=== PATIENT | female | born 1940 | race African-American/Black ===

== ENCOUNTER 2019-05-30 13:04 | Inpatient (IN) | payer BC, MEDICARE ==
[~2019-05-30] VITALS: Ht 152.4 cm; Wt 47.2 kg
[2019-05-30] MEDS ORDERED: SODIUM CHLORIDE 0.9% 1000ML BAG (SEPSIS BOLUS) IV ONE (13:45)
[2019-05-30] MEDS ORDERED: PIPERACILLIN/TAZ 3.375G PREMIX 50 ML IV ONE (14:15)
[2019-05-30 14:23] LABS: BG BASE EXCESS 2.7 mmol/L (-2.0-2.0); BG CARBOXYHEMOGLOBIN 0.3 % (0.5-1.5); BG DEOXYHEMOGLOBIN 2.1 % (0.0-5.0); BG FRACTION INSPIRED OXYGEN 21; BG HCO3 ACT 25.8 mmol/L (22.0-26.0); BG METHEMOGLOBIN 0.2 % (0.0-1.5); BG OXYGEN SATURATION 97.9 % (92.0-98.5); BG OXYHEMOGLOBIN 97.4 % (94.0-97.0); BG PCO2 34.1 mmHg (35.0-45.0); BG PH 7.496 (7.350-7.450); BG PO2 102.3 mmHg (75.0-100.0); BG SAMPLE SITE RIGHT BRACHIAL; BG TOTAL HEMOGLOBIN 11.3 g/dL (12.0-18.0); BG VENT MODE ROOM AIR
[2019-05-30 16:36] LABS: HEMOGLOBIN. 11.4 g/dL (12.0-16.0); MEAN CORPUSCULAR HEMOGLOBIN 27.1 pg (28.0-32.0); MEAN CORPUSCULAR VOLUME 83.7 fL (81.0-99.0); MEAN PLATELET VOLUME 7.4 fl (7.4-10.4); PLATELET 376 x1000/uL (130-400); RED BLOOD CELL COUNT 4.19 mill/uL (4.2-5.4); RED CELL DISTRIBUTION WIDTH 16.6 % (11.6-14.6)
[2019-05-30 16:42] LABS: CHLORIDE 92 mEq/L (98-107)
[2019-05-30 16:43] LABS: PROTHROMBIN TIME 10.9 sec (9.6-11.0)
[2019-05-30 16:58] LABS: PLATELET ESTIMATE NORMAL
[2019-05-30] MEDS ORDERED: NOREPINEPHRINE 4 MG in DEXT 5% WATER 246 ML IV ONE (17:00)
[2019-05-30] MEDS ORDERED: KCL 20MEQ/100ML PREMIX 100 ML IV ONE (17:00)
[2019-05-30] MEDS ORDERED: NOREPINEPHRINE 4MG/250ML PMX 250 ML IV NR (17:30)
[2019-05-30] MEDS: VANCOMYCIN 1 G PREMIX 200 ML IV SCH (19:12)
[2019-05-30 19:20] LABS: CLARITY URINE CLEAR (CLEAR); COLOR URINE YELLOW (YELLOW); KETONES URINE NEGATIVE (NEGATIVE); LEUKOCYTE ESTERASE URINE NEGATIVE (NEGATIVE); NITRITE URINE NEGATIVE (NEGATIVE); OCCULT BLOOD URINE 3+ (NEGATIVE); PROTEIN URINE 1+ (NEGATIVE); SPECIFIC GRAVITY URINE 1.011 (1.005-1.030)
[2019-05-30] MEDS ORDERED: POTASSIUM CHLORIDE 20MEQ TABLET SR PO ONE (21:15)
[2019-05-30] MEDS ORDERED: BENZONATATE 200MG CAPSULE PO NR (21:15)
[2019-05-31] MEDS ORDERED: NOREPINEPHRINE 4MG/250ML PMX 250 ML IV PRN (03:00)
[2019-05-31 05:07] LABS: CHLORIDE 99 mEq/L (98-107)
[2019-05-31 05:19] LABS: HEMATOCRIT. 30.2 % (36.0-48.0); HEMOGLOBIN. 9.8 g/dL (12.0-16.0); MEAN CORPUSCULAR HEMOGLOBIN 27.2 pg (28.0-32.0); MEAN CORPUSCULAR VOLUME 83.6 fL (81.0-99.0); MEAN PLATELET VOLUME 7.3 fl (7.4-10.4); PLATELET 377 x1000/uL (130-400); RED BLOOD CELL COUNT 3.61 mill/uL (4.2-5.4); RED CELL DISTRIBUTION WIDTH 16.4 % (11.6-14.6)
[2019-05-31] MEDS ORDERED: POTASSIUM CHLORIDE 20MEQ TABLET SR PO NR ×2 (06:00→15:30)
[2019-05-31] MEDS ORDERED: PIPERACILLIN/TAZOBACTAM 3.375 G in DEXT 5% WATER 100 ML IV NR (06:00)
[2019-05-31] MEDS: ACETAMINOPHEN 325MG TABLET PO PRN ×3 (06:15→22:46)
[2019-05-31 07:29] LABS: PLATELET ESTIMATE NORMAL
[2019-05-31] MEDS: THIAMINE HCL 100MG TABLET PO SCH ×2 (10:25→17:02)
[2019-05-31] MEDS: ZINC SULFATE 220 MG ( 50 ) CAPSULE PO SCH (10:25)
[2019-05-31] MEDS ORDERED: PIPERACILLIN/TAZ 3.375G PREMIX 50 ML IV NR (12:00)
[2019-05-31] MEDS ORDERED: PIPERACILLIN/TAZOBACTAM 3.375 G in DEXT 5% WATER 100 ML IV SCH (12:00)
[2019-05-31] MEDS: ASCORBIC ACID 500 MG TABLET PO SCH (12:43)
[2019-05-31 15:25] LABS: PHOSPHORUS 1.7 mg/dL (2.5-4.9)
[2019-05-31] MEDS ORDERED: POTASSIUM CHLORIDE INJ 40 MEQ in DEXT 5% WATER 250 ML IV NR (15:50)
[2019-05-31] MEDS ORDERED: MEROPENEM 1,000 MG in SODIUM CHLORIDE 0.9% 100 ML IV SCH (15:50)
[2019-05-31] MEDS: VANCOMYCIN 1 G PREMIX 200 ML IV SCH (17:26)
[2019-05-31] MEDS: NOREPINEPHRINE 32 MG in DEXT 5% WATER 468 ML IV PRN ×2 (17:27→17:31)
[2019-05-31] MEDS: POTASSIUM CHLORIDE 20MEQ TABLET SR PO NR ×2 (17:49→17:50)
[2019-05-31] MEDS ORDERED: POTASSIUM PHOS,M-BASIC-D-BASIC 20 MMOL in DEXT 5% WATER 243.3333 ML IV ONE (18:15)
[2019-05-31] MEDS: VANCOMYCIN 500 MG PREMIX 100 ML IV SCH (19:48)
[2019-06-01 04:46] LABS: HEMATOCRIT. 32.9 % (36.0-48.0); HEMOGLOBIN. 10.4 g/dL (12.0-16.0); MEAN CORPUSCULAR HEMOGLOBIN 27.1 pg (28.0-32.0); MEAN CORPUSCULAR VOLUME 85.6 fL (81.0-99.0); PLATELET 306 x1000/uL (130-400); RED BLOOD CELL COUNT 3.84 mill/uL (4.2-5.4); RED CELL DISTRIBUTION WIDTH 16.6 % (11.6-14.6)
[2019-06-01 04:51] LABS: CHLORIDE 103 mEq/L (98-107)
[2019-06-01 05:43] LABS: PLATELET ESTIMATE NORMAL
[2019-06-01] MEDS: VANCOMYCIN 500 MG PREMIX 100 ML IV SCH ×3 (06:39→18:00)
[2019-06-01] MEDS ORDERED: MEROPENEM 1,000 MG in SODIUM CHLORIDE 0.9% 100 ML IV SCH ×3 (08:15→20:00)
[2019-06-01] MEDS ORDERED: MIDODRINE HCL 5MG TABLET PO NR ×2 (08:15→12:45)
[2019-06-01] MEDS: ASCORBIC ACID 500 MG TABLET PO SCH ×3 (08:48→21:00)
[2019-06-01] MEDS: ENOXAPARIN 30MG/0.3ML SYR SUBCUT SCH ×2 (09:00→09:13)
[2019-06-01] MEDS: MAGNESIUM 2 G PREMIX 50 ML IV SCH ×2 (09:12→09:53)
[2019-06-01] MEDS: THIAMINE HCL 100MG TABLET PO SCH ×2 (09:13→17:43)
[2019-06-01] MEDS: ZINC SULFATE 220 MG ( 50 ) CAPSULE PO SCH (09:13)
[2019-06-01] MEDS: SODIUM CHLORIDE 0.9% 1,000 ML IV SCH (10:15)
[2019-06-01] MEDS: TRAMADOL 50MG TABLET PO PRN ×2 (13:54→15:21)
[2019-06-01] MEDS ORDERED: SODIUM PHOS,M-BASIC-D-BASIC 20 MM in DEXT 5% WATER 243.3333 ML IV NR (14:15)
[2019-06-01] MEDS: NOREPINEPHRINE 32 MG in DEXT 5% WATER 468 ML IV PRN (15:21)
[2019-06-01] MEDS ORDERED: MIDODRINE HCL 5MG TABLET PO SCH (17:00)
[2019-06-01] MEDS: MIDODRINE HCL 5MG TABLET PO SCH (17:30)
[2019-06-01 23:27] VITALS: BP 98/63
[2019-06-01 23:36] VITALS: BP 98/63
[2019-06-01 23:42] VITALS: BP 98/63
[2019-06-02] VITALS (81 sets, daily range): BP systolic 83–103; BP diastolic 48–69
[2019-06-02] MEDS ORDERED: VANCOMYCIN 750 MG PREMIX 150 ML IV SCH
[2019-06-02] MEDS: VANCOMYCIN 500 MG PREMIX 100 ML IV SCH ×2 (06:27→17:51)
[2019-06-02 06:49] LABS: CHLORIDE 107 mEq/L (98-107)
[2019-06-02] MEDS: ASCORBIC ACID 500 MG TABLET PO SCH ×2 (08:09→21:00)
[2019-06-02] MEDS: MIDODRINE HCL 5MG TABLET PO SCH ×3 (08:09→17:27)
[2019-06-02] MEDS: ZINC SULFATE 220 MG ( 50 ) CAPSULE PO SCH (08:09)
[2019-06-02] MEDS: THIAMINE HCL 100MG TABLET PO SCH ×2 (08:09→17:27)
[2019-06-02] MEDS: MEROPENEM 500MG in NORMAL SALINE 50ML IV SCH ×2 (08:10→21:00)
[2019-06-02 10:28] LABS: HEMATOCRIT. 32.5 % (36.0-48.0); HEMOGLOBIN. 10.1 g/dL (12.0-16.0); MEAN CORPUSCULAR VOLUME 87.3 fL (81.0-99.0); MEAN PLATELET VOLUME 7.3 fl (7.4-10.4); PLATELET 284 x1000/uL (130-400); RED BLOOD CELL COUNT 3.73 mill/uL (4.2-5.4); RED CELL DISTRIBUTION WIDTH 17.3 % (11.6-14.6)
[2019-06-02 11:00] LABS: PLATELET ESTIMATE NORMAL
[2019-06-02 12:30] LABS: PHOSPHORUS 3.5 mg/dL (2.5-4.9)
[2019-06-02] MEDS: MORPHINE SULFATE 2 MG/ML CPJ (NOT FOR IM USE) IV PRN ×2 (12:50→19:57)
[2019-06-02] MEDS: LORAZEPAM 2MG/ML CPJ IV PRN (20:36)
[2019-06-03] VITALS (83 sets, daily range): BP systolic 77–109; BP diastolic 40–71
[2019-06-03] MEDS: BLOOD SUGAR DIAGNOSTIC STRIP TEST SCH ×4 (00:26→17:07)
[2019-06-03] MEDS: DEXTROSE 50% WATER 50ML SYRINGE IV PRN (00:38)
[2019-06-03] MEDS ORDERED: ATOR-2 PO (02:30)
[2019-06-03] MEDS ORDERED: FURO40SO PO (02:32)
[2019-06-03] MEDS ORDERED: AMLO10TA80 PO (02:32)
[2019-06-03] MEDS ORDERED: OMEP20TA2 PO (02:34)
[2019-06-03] MEDS ORDERED: ASPI-1497 PO (02:34)
[2019-06-03] MEDS: LORAZEPAM 2MG/ML CPJ IV PRN (03:39)
[2019-06-03] MEDS: VANCOMYCIN 500 MG PREMIX 100 ML IV SCH (05:48)
[2019-06-03 06:07] LABS: HEMATOCRIT. 34.5 % (36.0-48.0); HEMOGLOBIN. 10.8 g/dL (12.0-16.0); MEAN CORPUSCULAR HEMOGLOBIN 27.5 pg (28.0-32.0); MEAN CORPUSCULAR VOLUME 87.8 fL (81.0-99.0); MEAN PLATELET VOLUME 7.4 fl (7.4-10.4); PLATELET 249 x1000/uL (130-400); RED BLOOD CELL COUNT 3.93 mill/uL (4.2-5.4); RED CELL DISTRIBUTION WIDTH 17.6 % (11.6-14.6)
[2019-06-03 06:36] LABS: CHLORIDE 111 mEq/L (98-107)
[2019-06-03 08:08] LABS: PLATELET ESTIMATE NORMAL
[2019-06-03] MEDS: THIAMINE HCL 100MG TABLET PO SCH ×2 (08:36→17:07)
[2019-06-03] MEDS: ASCORBIC ACID 500 MG TABLET PO SCH ×2 (08:36→21:44)
[2019-06-03] MEDS: MIDODRINE HCL 5MG TABLET PO SCH ×3 (08:36→17:07)
[2019-06-03] MEDS: ZINC SULFATE 220 MG ( 50 ) CAPSULE PO SCH (08:36)
[2019-06-03] MEDS: MEROPENEM 500MG in NORMAL SALINE 50ML IV SCH ×2 (11:14→21:45)
[2019-06-03] MEDS ORDERED: PHENYLEPHRINE 10 MG in DEXT 5% WATER 249 ML IV PRN (13:00)
[2019-06-03] MEDS: PHENYLEPHRINE 40 MG in DEXT 5% WATER 246 ML IV PRN ×2 (18:13→23:04)
[2019-06-03] MEDS: SODIUM CHLORIDE 0.9% 1,000 ML IV SCH (21:45)
[2019-06-04] VITALS (94 sets, daily range): BP systolic 68–104; BP diastolic 32–67
[2019-06-04] MEDS: BLOOD SUGAR DIAGNOSTIC STRIP TEST SCH ×4 (00:58→18:00)
[2019-06-04] MEDS: PHENYLEPHRINE 40 MG in DEXT 5% WATER 246 ML IV PRN (03:46)
[2019-06-04 06:00] LABS: HEMATOCRIT. 31.8 % (36.0-48.0); HEMOGLOBIN. 10.1 g/dL (12.0-16.0); MEAN CORPUSCULAR HEMOGLOBIN 27.2 pg (28.0-32.0); MEAN CORPUSCULAR VOLUME 85.8 fL (81.0-99.0); PLATELET 235 x1000/uL (130-400); RED CELL DISTRIBUTION WIDTH 17.2 % (11.6-14.6)
[2019-06-04] MEDS ORDERED: PHENYLEPHRINE 80 MG in DEXT 5% WATER 492 ML IV PRN (06:00)
[2019-06-04 06:22] LABS: CHLORIDE 107 mEq/L (98-107)
[2019-06-04 06:29] LABS: VANCOMYCIN TROUGH 22.8 ug/mL (5.0-10.0)
[2019-06-04] MEDS: TRAMADOL 50MG TABLET PO PRN ×4 (07:24→19:05)
[2019-06-04] MEDS ORDERED: POTASSIUM CHLORIDE INJ 40 MEQ in DEXT 5% WATER 250 ML IV NR (08:00)
[2019-06-04] MEDS: MIDODRINE HCL 5MG TABLET PO SCH ×3 (08:57→18:05)
[2019-06-04] MEDS: ZINC SULFATE 220 MG ( 50 ) CAPSULE PO SCH (08:58)
[2019-06-04] MEDS: THIAMINE HCL 100MG TABLET PO SCH ×2 (08:58→18:05)
[2019-06-04] MEDS: ASCORBIC ACID 500 MG TABLET PO SCH ×2 (08:59→21:39)
[2019-06-04] MEDS: MEROPENEM 500MG in NORMAL SALINE 50ML IV SCH ×2 (09:00→21:39)
[2019-06-04 10:39] LABS: PLATELET ESTIMATE NORMAL
[2019-06-04] MEDS ORDERED: POTASSIUM CHLORIDE 20MEQ TABLET SR PO NR ×2 (11:00→14:00)
[2019-06-04] MEDS: SODIUM CHLORIDE 0.9% 1,000 ML IV SCH (18:06)
[2019-06-04] MEDS: PHENYLEPHRINE 80 MG in DEXT 5% WATER 492 ML IV PRN ×2 (19:31→23:17)
[2019-06-04] MEDS ORDERED: DIGOXIN 500MCG/2ML AMP IV NR (20:30)
[2019-06-04] MEDS ORDERED: ALBUMIN HUMAN 25GM/500ML (5%) IV NR (21:00)
[2019-06-05] VITALS (71 sets, daily range): BP systolic 68–142; BP diastolic 37–112
[2019-06-05] MEDS: BLOOD SUGAR DIAGNOSTIC STRIP TEST SCH ×4 (00:01→17:26)
[2019-06-05 07:29] LABS: BASOPHILS % 0.4 % (0.0-2.0); EOSINOPHILS % 0.7 % (0.0-5.0); HEMATOCRIT. 23.5 % (36.0-48.0); HEMOGLOBIN. 7.5 g/dL (12.0-16.0); LYMPHOCYTES % 7.9 % (20.0-50.0); MEAN CORPUSCULAR HEMOGLOBIN 27.4 pg (28.0-32.0); MEAN CORPUSCULAR VOLUME 86.4 fL (81.0-99.0); MEAN PLATELET VOLUME 7.8 fl (7.4-10.4); MONOCYTES % 6.6 % (2.0-8.0); NEUTROPHILS % 84.4 % (40.0-76.0); PLATELET 155 x1000/uL (130-400); RED BLOOD CELL COUNT 2.72 mill/uL (4.2-5.4); RED CELL DISTRIBUTION WIDTH 17.1 % (11.6-14.6)
[2019-06-05 07:39] LABS: CHLORIDE 107 mEq/L (98-107)
[2019-06-05] MEDS: THIAMINE HCL 100MG TABLET PO SCH ×2 (08:41→16:56)
[2019-06-05] MEDS: MIDODRINE HCL 5MG TABLET PO SCH ×3 (08:42→16:57)
[2019-06-05] MEDS: ASCORBIC ACID 500 MG TABLET PO SCH ×2 (08:42→21:12)
[2019-06-05] MEDS: ZINC SULFATE 220 MG ( 50 ) CAPSULE PO SCH (08:42)
[2019-06-05 09:50] LABS: BG BASE EXCESS -8.7 mmol/L (-2.0-2.0); BG BILEVEL POS AIRWAY PRESSURE 15/5; BG CARBOXYHEMOGLOBIN 0.2 % (0.5-1.5); BG DEOXYHEMOGLOBIN 0.5 % (0.0-5.0); BG FRACTION INSPIRED OXYGEN 60; BG HCO3 ACT 15.5 mmol/L (22.0-26.0); BG METHEMOGLOBIN 0.3 % (0.0-1.5); BG OXYGEN SATURATION 99.5 % (92.0-98.5); BG PCO2 27.1 mmHg (35.0-45.0); BG PH 7.374 (7.350-7.450); BG PO2 187.5 mmHg (75.0-100.0); BG SAMPLE SITE RIGHT RADIAL; BG VENT MODE MASK - BIPAP; BG VENT RATE 16 set
[2019-06-05] MEDS ORDERED: POTASSIUM CHLORIDE 20MEQ TABLET SR PO SCH (10:00)
[2019-06-05] MEDS ORDERED: POTASSIUM CHLORIDE 20MEQ/PACKET NG SCH (10:15)
[2019-06-05] MEDS: MEROPENEM 500MG in NORMAL SALINE 50ML IV SCH ×2 (11:01→21:12)
[2019-06-05] MEDS: SODIUM CHLORIDE 0.9% 1,000 ML IV SCH (12:54)
[2019-06-05] MEDS: IPRATROPIUM BROMIDE (0.02%) 0.5MG/2.5ML NEB HHN SCH ×2 (14:58→20:04)
[2019-06-05] MEDS: FLUDROCORTISONE ACETATE 0.1MG TABLET PO SCH (16:57)
[2019-06-05] MEDS: VASOPRESSIN 10 UNIT in SODIUM CHLORIDE 0.9% 99.5 ML IV PRN (19:51)
[2019-06-05] MEDS: PHENYLEPHRINE 80 MG in DEXT 5% WATER 492 ML IV PRN (23:22)
[2019-06-06] VITALS (88 sets, daily range): BP systolic 75–108; BP diastolic 50–78
[2019-06-06] MEDS: BLOOD SUGAR DIAGNOSTIC STRIP TEST SCH ×4 (00:44→17:33)
[2019-06-06] MEDS: VASOPRESSIN 10 UNIT in SODIUM CHLORIDE 0.9% 99.5 ML IV PRN ×5 (01:32→21:45)
[2019-06-06] MEDS: IPRATROPIUM BROMIDE (0.02%) 0.5MG/2.5ML NEB HHN SCH ×4 (02:27→22:15)
[2019-06-06] MEDS: PHENYLEPHRINE 80 MG in DEXT 5% WATER 492 ML IV PRN ×3 (05:37→21:53)
[2019-06-06 06:37] LABS: BASOPHILS % 0.5 % (0.0-2.0); EOSINOPHILS % 0.4 % (0.0-5.0); HEMATOCRIT. 24.5 % (36.0-48.0); HEMOGLOBIN. 7.6 g/dL (12.0-16.0); LYMPHOCYTES % 8.8 % (20.0-50.0); MEAN CORPUSCULAR HEMOGLOBIN 27.2 pg (28.0-32.0); MEAN CORPUSCULAR VOLUME 87.3 fL (81.0-99.0); MEAN PLATELET VOLUME 7.9 fl (7.4-10.4); MONOCYTES % 6.7 % (2.0-8.0); NEUTROPHILS % 83.6 % (40.0-76.0); PLATELET 169 x1000/uL (130-400); RED CELL DISTRIBUTION WIDTH 17.4 % (11.6-14.6)
[2019-06-06 06:56] LABS: CHLORIDE 110 mEq/L (98-107)
[2019-06-06] MEDS: THIAMINE HCL 100MG TABLET PO SCH ×2 (09:02→17:38)
[2019-06-06] MEDS: ASCORBIC ACID 500 MG TABLET PO SCH ×2 (09:02→21:16)
[2019-06-06] MEDS: FLUDROCORTISONE ACETATE 0.1MG TABLET PO SCH (09:02)
[2019-06-06] MEDS: ZINC SULFATE 220 MG ( 50 ) CAPSULE PO SCH (09:02)
[2019-06-06] MEDS: MIDODRINE HCL 5MG TABLET PO SCH ×3 (09:03→17:39)
[2019-06-06] MEDS: MEROPENEM 500MG in NORMAL SALINE 50ML IV SCH ×2 (09:04→21:16)
[2019-06-06] MEDS ORDERED: POTASSIUM CHLORIDE 20MEQ/PACKET PO SCH (09:45)
[2019-06-06 11:30] LABS: PHOSPHORUS 0.9 mg/dL (2.5-4.9)
[2019-06-06] MEDS ORDERED: POTASSIUM CHLORIDE INJ 40 MEQ in DEXT 5% WATER 250 ML IV SCH (12:00)
[2019-06-06] MEDS: METOCLOPRAMIDE HCL 10MG/2ML VIAL IV SCH ×2 (12:08→17:38)
[2019-06-06] MEDS ORDERED: MAGNESIUM 4 G PREMIX 100 ML IV SCH (14:00)
[2019-06-06] MEDS ORDERED: POTASSIUM PHOS,M-BASIC-D-BASIC 30 MMOL in SODIUM CHLORIDE 0.9% 500 ML IV SCH (14:30)
[2019-06-06] MEDS ORDERED: POTASSIUM CHLORIDE INJ 40 MEQ in DEXT 5% WATER 250 ML IV NR (18:30)
[2019-06-06] MEDS: LORAZEPAM 2MG/ML CPJ IV PRN (20:28)
[2019-06-07] VITALS (89 sets, daily range): BP systolic 76–143; BP diastolic 34–102
[2019-06-07] MEDS: BLOOD SUGAR DIAGNOSTIC STRIP TEST SCH ×4 (00:17→17:19)
[2019-06-07] MEDS: METOCLOPRAMIDE HCL 10MG/2ML VIAL IV SCH ×4 (00:18→17:19)
[2019-06-07] MEDS: VASOPRESSIN 10 UNIT in SODIUM CHLORIDE 0.9% 99.5 ML IV PRN ×5 (01:55→19:43)
[2019-06-07] MEDS: IPRATROPIUM BROMIDE (0.02%) 0.5MG/2.5ML NEB HHN SCH ×4 (02:44→19:53)
[2019-06-07 05:57] LABS: HEMATOCRIT. 26.4 % (36.0-48.0); HEMOGLOBIN. 8.1 g/dL (12.0-16.0); MEAN CORPUSCULAR HEMOGLOBIN 27.9 pg (28.0-32.0); MEAN CORPUSCULAR VOLUME 90.8 fL (81.0-99.0); MEAN PLATELET VOLUME 8.7 fl (7.4-10.4); PLATELET 179 x1000/uL (130-400); RED CELL DISTRIBUTION WIDTH 18.1 % (11.6-14.6)
[2019-06-07 06:04] LABS: CHLORIDE 108 mEq/L (98-107)
[2019-06-07 06:09] LABS: PHOSPHORUS 3.3 mg/dL (2.5-4.9)
[2019-06-07] MEDS: SODIUM CHLORIDE 0.9% 1,000 ML IV SCH (06:15)
[2019-06-07] MEDS ORDERED: SODIUM BICARBONATE 8.4% 1 MEQ/ML 50ML SYR IV SCH (07:00)
[2019-06-07 07:50] LABS: BG BASE EXCESS -16.2 mmol/L (-2.0-2.0); BG BILEVEL POS AIRWAY PRESSURE ST=15/5; BG CARBOXYHEMOGLOBIN 0.3 % (0.5-1.5); BG DEOXYHEMOGLOBIN 12.8 % (0.0-5.0); BG FRACTION INSPIRED OXYGEN 60; BG HCO3 ACT 10.7 mmol/L (22.0-26.0); BG METHEMOGLOBIN 0.4 % (0.0-1.5); BG OXYGEN SATURATION 87.1 % (92.0-98.5); BG OXYHEMOGLOBIN 86.5 % (94.0-97.0); BG PCO2 28.8 mmHg (35.0-45.0); BG PH 7.187 (7.350-7.450); BG PO2 63.7 mmHg (75.0-100.0); BG SAMPLE SITE RIGHT RADIAL; BG TOTAL HEMOGLOBIN 7.9 g/dL (12.0-18.0); BG VENT MODE MASK - BIPAP; BG VENT RATE 16 set
[2019-06-07] MEDS ORDERED: SODIUM POLYSTYRENE SULFONATE 15 G/60 ML BOT PO SCH (08:00)
[2019-06-07] MEDS ORDERED: SODIUM BICARBONATE 8.4% 1 MEQ/ML 50ML SYR IV NR (08:15)
[2019-06-07] MEDS ORDERED: PROPOFOL 10MG/ML 100ML 100 ML IV PRN (08:15)
[2019-06-07] MEDS: ZINC SULFATE 220 MG ( 50 ) CAPSULE PO SCH (08:20)
[2019-06-07] MEDS: ASCORBIC ACID 500 MG TABLET PO SCH ×2 (08:20→20:58)
[2019-06-07] MEDS: THIAMINE HCL 100MG TABLET PO SCH ×2 (08:21→16:08)
[2019-06-07] MEDS: MIDODRINE HCL 5MG TABLET PO SCH ×3 (08:21→16:08)
[2019-06-07 08:47] LABS: PLATELET ESTIMATE NORMAL
[2019-06-07] MEDS ORDERED: POTASSIUM CHLORIDE 20MEQ/PACKET PO SCH ×2 (09:00)
[2019-06-07] MEDS ORDERED: POTASSIUM CHLORIDE 20MEQ/PACKET PO ONE (09:00)
[2019-06-07] MEDS: FLUDROCORTISONE ACETATE 0.1MG TABLET PO SCH (09:00)
[2019-06-07] MEDS ORDERED: VECURONIUM BROMIDE 10 MG/VIAL IV ONE (09:15)
[2019-06-07] MEDS ORDERED: ETOMIDATE 2MG/ML 10ML VIAL IV ONE (09:15)
[2019-06-07] MEDS ORDERED: SODIUM CHLORIDE 0.9% 500 ML IV ONE ×2 (09:45→10:45)
[2019-06-07 10:04] LABS: BG BASE EXCESS -10.1 mmol/L (-2.0-2.0); BG CARBOXYHEMOGLOBIN 0.3 % (0.5-1.5); BG DEOXYHEMOGLOBIN 4.7 % (0.0-5.0); BG FRACTION INSPIRED OXYGEN 100; BG HCO3 ACT 14.5 mmol/L (22.0-26.0); BG METHEMOGLOBIN 0.2 % (0.0-1.5); BG OXYGEN SATURATION 95.3 % (92.0-98.5); BG OXYHEMOGLOBIN 94.8 % (94.0-97.0); BG PCO2 27.5 mmHg (35.0-45.0); BG SAMPLE SITE LEFT BRACHIAL; BG TIDAL VOLUME(mL) 450 mL; BG TOTAL HEMOGLOBIN 8.4 g/dL (12.0-18.0); BG VENT MODE VENT - A/C; BG VENT RATE 20 set
[2019-06-07] MEDS ORDERED: SODIUM BICARBONATE 4% (2.4MEQ) 5ML VIAL IV ONE (10:25)
[2019-06-07] MEDS ORDERED: LIDOCAINE HCL 1% 20ML VIAL (Pyxis) INJ ONE (10:25)
[2019-06-07] MEDS ORDERED: DIGOXIN 500MCG/2ML AMP IV ONE (11:15)
[2019-06-07] MEDS: PHENYLEPHRINE 80 MG in DEXT 5% WATER 492 ML IV PRN ×2 (12:19→19:54)
[2019-06-07 16:15] LABS: CHLORIDE 109 mEq/L (98-107)
[2019-06-07 16:35] LABS: DIGOXIN 2.2 ng/mL (0.9-2.0)
[2019-06-07] MEDS ORDERED: DIGOXIN 500MCG/2ML AMP ONE (21:46)
[2019-06-07] MEDS ORDERED: DIGOXIN 500MCG/2ML AMP IV NR ×2 (22:00→23:00)
[2019-06-08] VITALS (85 sets, daily range): BP systolic 59–131; BP diastolic 31–101
[2019-06-08] MEDS: BLOOD SUGAR DIAGNOSTIC STRIP TEST SCH ×5 (00:31→23:43)
[2019-06-08] MEDS: VASOPRESSIN 10 UNIT in SODIUM CHLORIDE 0.9% 99.5 ML IV PRN ×6 (00:31→23:23)
[2019-06-08] MEDS: METOCLOPRAMIDE HCL 10MG/2ML VIAL IV SCH ×4 (00:38→17:02)
[2019-06-08] MEDS: IPRATROPIUM BROMIDE (0.02%) 0.5MG/2.5ML NEB HHN SCH ×4 (02:13→20:36)
[2019-06-08] MEDS: SODIUM CHLORIDE 0.9% 1,000 ML IV SCH (05:39)
[2019-06-08] MEDS: PHENYLEPHRINE 80 MG in DEXT 5% WATER 492 ML IV PRN ×3 (05:40→21:39)
[2019-06-08 08:23] LABS: BG BASE EXCESS -7.9 mmol/L (-2.0-2.0); BG CARBOXYHEMOGLOBIN 0.3 % (0.5-1.5); BG DEOXYHEMOGLOBIN 0.2 % (0.0-5.0); BG FRACTION INSPIRED OXYGEN 100; BG HCO3 ACT 15.4 mmol/L (22.0-26.0); BG METHEMOGLOBIN 0.5 % (0.0-1.5); BG OXYGEN SATURATION 99.8 % (92.0-98.5); BG PCO2 23.9 mmHg (35.0-45.0); BG PH 7.428 (7.350-7.450); BG PO2 521.1 mmHg (75.0-100.0); BG SAMPLE SITE RIGHT RADIAL; BG TIDAL VOLUME(mL) 450 mL; BG TOTAL HEMOGLOBIN 7.4 g/dL (12.0-18.0); BG VENT MODE VENT - A/C; BG VENT RATE 20 set
[2019-06-08 08:55] LABS: CHLORIDE 112 mEq/L (98-107)
[2019-06-08] MEDS: FLUDROCORTISONE ACETATE 0.1MG TABLET PO SCH (09:17)
[2019-06-08] MEDS: MIDODRINE HCL 5MG TABLET PO SCH ×3 (09:17→16:46)
[2019-06-08] MEDS: THIAMINE HCL 100MG TABLET PO SCH ×2 (09:17→16:47)
[2019-06-08] MEDS: ZINC SULFATE 220 MG ( 50 ) CAPSULE PO SCH (09:17)
[2019-06-08] MEDS: ASCORBIC ACID 500 MG TABLET PO SCH ×2 (09:17→21:39)
[2019-06-08 10:27] LABS: HEMATOCRIT. 26.1 % (36.0-48.0); HEMOGLOBIN. 7.9 g/dL (12.0-16.0); MEAN CORPUSCULAR VOLUME 89.2 fL (81.0-99.0); MEAN PLATELET VOLUME 8.6 fl (7.4-10.4); PLATELET 162 x1000/uL (130-400); RED BLOOD CELL COUNT 2.92 mill/uL (4.2-5.4); RED CELL DISTRIBUTION WIDTH 17.5 % (11.6-14.6)
[2019-06-08 11:13] LABS: PLATELET ESTIMATE NORMAL
[2019-06-08] MEDS ORDERED: PROPOFOL 10MG/ML 100ML 100 ML IV PRN (11:15)
[2019-06-08] MEDS: DEXTROSE 50% WATER 50ML SYRINGE IV PRN ×3 (12:28→15:58)
[2019-06-08] MEDS ORDERED: DEXT 5%/0.9% NACL 1,000 ML IV SCH (12:45)
[2019-06-08] MEDS ORDERED: DIGOXIN 500MCG/2ML AMP IV ONE (15:30)
[2019-06-08] MEDS ORDERED: DEXT 10% WATER 1,000 ML IV SCH (15:45)
[2019-06-09] VITALS (88 sets, daily range): BP systolic 73–122; BP diastolic 32–76
[2019-06-09] MEDS: IPRATROPIUM BROMIDE (0.02%) 0.5MG/2.5ML NEB HHN SCH ×4 (02:22→20:45)
[2019-06-09 05:35] LABS: CHLORIDE 106 mEq/L (98-107)
[2019-06-09 05:45] LABS: HEMATOCRIT. 21.6 % (36.0-48.0); MEAN CORPUSCULAR HEMOGLOBIN 27.5 pg (28.0-32.0); MEAN CORPUSCULAR VOLUME 85.4 fL (81.0-99.0); MEAN PLATELET VOLUME 8.5 fl (7.4-10.4); PLATELET 161 x1000/uL (130-400); RED BLOOD CELL COUNT 2.53 mill/uL (4.2-5.4); RED CELL DISTRIBUTION WIDTH 17.4 % (11.6-14.6)
[2019-06-09] MEDS: METOCLOPRAMIDE HCL 10MG/2ML VIAL IV SCH ×4 (06:00→17:06)
[2019-06-09] MEDS: BLOOD SUGAR DIAGNOSTIC STRIP TEST SCH ×3 (06:00→17:06)
[2019-06-09 07:31] LABS: BG CARBOXYHEMOGLOBIN 0.2 % (0.5-1.5); BG DEOXYHEMOGLOBIN 11.7 % (0.0-5.0); BG FRACTION INSPIRED OXYGEN 40; BG HCO3 ACT 13.3 mmol/L (22.0-26.0); BG METHEMOGLOBIN 0.3 % (0.0-1.5); BG OXYGEN SATURATION 88.2 % (92.0-98.5); BG OXYHEMOGLOBIN 87.8 % (94.0-97.0); BG PH 7.294 (7.350-7.450); BG PO2 66.7 mmHg (75.0-100.0); BG SAMPLE SITE RIGHT RADIAL; BG TIDAL VOLUME(mL) 450 mL; BG TOTAL HEMOGLOBIN 8.2 g/dL (12.0-18.0); BG VENT MODE VENT - A/C; BG VENT RATE 20 set
[2019-06-09] MEDS ORDERED: POTASSIUM CHLORIDE INJ 40 MEQ in DEXT 5% WATER 500 ML IV NR (08:00)
[2019-06-09] MEDS: PHENYLEPHRINE 80 MG in DEXT 5% WATER 492 ML IV PRN ×3 (08:10→23:22)
[2019-06-09 08:19] LABS: PLATELET ESTIMATE NORMAL
[2019-06-09] MEDS: ZINC SULFATE 220 MG ( 50 ) CAPSULE PO SCH (08:25)
[2019-06-09] MEDS: FLUDROCORTISONE ACETATE 0.1MG TABLET PO SCH (08:26)
[2019-06-09] MEDS: THIAMINE HCL 100MG TABLET PO SCH ×2 (08:26→17:06)
[2019-06-09] MEDS: MIDODRINE HCL 5MG TABLET PO SCH ×3 (08:26→17:05)
[2019-06-09] MEDS: ASCORBIC ACID 500 MG TABLET PO SCH ×2 (08:26→20:46)
[2019-06-09] MEDS ORDERED: DEXT 5%/0.9% NACL 1,000 ML IV SCH (10:00)
[2019-06-09] MEDS: SODIUM BICARBONATE 150 MEQ in DEXTROSE 5% WATER 1,000 ML IV SCH (10:35)
[2019-06-09] MEDS ORDERED: POTASSIUM CHLORIDE 20MEQ TABLET SR PO SCH ×3 (11:30→16:45)
[2019-06-09 12:50] LABS: HEMATOCRIT 22.9 % (36.0-48.0); HEMOGLOBIN 7.2 g/dL (12.0-16.0); MEAN CORPUSCULAR HEMOGLOBIN 26.9 pg (28.0-32.0); MEAN CORPUSCULAR VOLUME 85.7 fL (81.0-99.0); PLATELET 156 x1000/uL (130-400); RED BLOOD CELL COUNT 2.68 mill/uL (4.2-5.4); RED CELL DISTRIBUTION WIDTH 17.1 % (11.6-14.6)
[2019-06-09 13:08] LABS: CHLORIDE 103 mEq/L (98-107)
[2019-06-09 13:13] LABS: PHOSPHORUS 1.8 mg/dL (2.5-4.9)
[2019-06-09] MEDS ORDERED: PROPOFOL 10MG/ML 100ML 100 ML IV PRN (13:15)
[2019-06-09] MEDS ORDERED: POTASSIUM CHLORIDE 20MEQ/PACKET PO NR (13:45)
[2019-06-09] MEDS ORDERED: MAGNESIUM 2 G PREMIX 50 ML IV NR (14:30)
[2019-06-09] MEDS ORDERED: POTASSIUM PHOS,M-BASIC-D-BASIC 30 MMOL in SODIUM CHLORIDE 0.9% 500 ML IV NR (15:00)
[2019-06-09] MEDS: VASOPRESSIN 10 UNIT in SODIUM CHLORIDE 0.9% 99.5 ML IV PRN (23:27)
[2019-06-09 23:32] LABS: CHLORIDE 107 mEq/L (98-107)
[2019-06-09 23:37] LABS: PHOSPHORUS 3.6 mg/dL (2.5-4.9)
[2019-06-10] VITALS (90 sets, daily range): BP systolic 80–117; BP diastolic 38–87
[2019-06-10] MEDS: BLOOD SUGAR DIAGNOSTIC STRIP TEST SCH ×4 (00:05→17:33)
[2019-06-10] MEDS: METOCLOPRAMIDE HCL 10MG/2ML VIAL IV SCH ×4 (00:05→17:05)
[2019-06-10] MEDS: SODIUM BICARBONATE 150 MEQ in DEXTROSE 5% WATER 1,000 ML IV SCH ×2 (02:20→17:40)
[2019-06-10] MEDS: IPRATROPIUM BROMIDE (0.02%) 0.5MG/2.5ML NEB HHN SCH ×4 (02:36→20:45)
[2019-06-10 06:25] LABS: BASOPHILS % 0.3 % (0.0-2.0); EOSINOPHILS % 0.2 % (0.0-5.0); HEMATOCRIT. 22.6 % (36.0-48.0); LYMPHOCYTES % 8.4 % (20.0-50.0); MEAN CORPUSCULAR HEMOGLOBIN 27.6 pg (28.0-32.0); MEAN CORPUSCULAR VOLUME 89.1 fL (81.0-99.0); MEAN PLATELET VOLUME 8.6 fl (7.4-10.4); MONOCYTES % 7.9 % (2.0-8.0); NEUTROPHILS % 83.2 % (40.0-76.0); PLATELET 176 x1000/uL (130-400); RED BLOOD CELL COUNT 2.54 mill/uL (4.2-5.4); RED CELL DISTRIBUTION WIDTH 17.4 % (11.6-14.6)
[2019-06-10 06:33] LABS: CHLORIDE 107 mEq/L (98-107)
[2019-06-10] MEDS: PHENYLEPHRINE 80 MG in DEXT 5% WATER 492 ML IV PRN ×2 (06:54→15:40)
[2019-06-10 07:10] LABS: BG BASE EXCESS -6.1 mmol/L (-2.0-2.0); BG CARBOXYHEMOGLOBIN 0.2 % (0.5-1.5); BG DEOXYHEMOGLOBIN 0.9 % (0.0-5.0); BG FRACTION INSPIRED OXYGEN 40; BG HCO3 ACT 14.2 mmol/L (22.0-26.0); BG OXYGEN SATURATION 99.1 % (92.0-98.5); BG OXYHEMOGLOBIN 98.9 % (94.0-97.0); BG PCO2 14.8 mmHg (35.0-45.0); BG PH 7.599 (7.350-7.450); BG PO2 223.1 mmHg (75.0-100.0); BG SAMPLE SITE RIGHT RADIAL; BG TIDAL VOLUME(mL) 450 mL; BG TOTAL HEMOGLOBIN 7.9 g/dL (12.0-18.0); BG VENT MODE VENT - A/C; BG VENT RATE 24 set
[2019-06-10] MEDS: FLUDROCORTISONE ACETATE 0.1MG TABLET PO SCH (08:38)
[2019-06-10] MEDS: POTASSIUM CHLORIDE 20MEQ/PACKET NG SCH (08:38)
[2019-06-10] MEDS: THIAMINE HCL 100MG TABLET PO SCH ×2 (08:38→16:53)
[2019-06-10] MEDS: ZINC SULFATE 220 MG ( 50 ) CAPSULE PO SCH (08:38)
[2019-06-10] MEDS: ASCORBIC ACID 500 MG TABLET PO SCH ×2 (08:38→21:35)
[2019-06-10] MEDS: VASOPRESSIN 10 UNIT in SODIUM CHLORIDE 0.9% 99.5 ML IV PRN (08:55)
[2019-06-10] MEDS ORDERED: PROPOFOL 10MG/ML 100ML 100 ML IV PRN (11:00)
[2019-06-10] MEDS: MIDODRINE HCL 5MG TABLET PO SCH ×3 (11:26→16:53)
[2019-06-11] VITALS (84 sets, daily range): BP systolic 83–105; BP diastolic 51–73
[2019-06-11] MEDS: METOCLOPRAMIDE HCL 10MG/2ML VIAL IV SCH ×5 (01:12→23:35)
[2019-06-11] MEDS: PHENYLEPHRINE 80 MG in DEXT 5% WATER 492 ML IV PRN ×2 (01:12→18:00)
[2019-06-11] MEDS: IPRATROPIUM BROMIDE (0.02%) 0.5MG/2.5ML NEB HHN SCH ×4 (02:32→20:07)
[2019-06-11] MEDS: BLOOD SUGAR DIAGNOSTIC STRIP TEST SCH ×4 (06:04→17:35)
[2019-06-11 06:13] LABS: BASOPHILS % 0.3 % (0.0-2.0); EOSINOPHILS % 0.2 % (0.0-5.0); HEMATOCRIT. 41.3 % (36.0-48.0); HEMOGLOBIN. 13.4 g/dL (12.0-16.0); LYMPHOCYTES % 7.2 % (20.0-50.0); MEAN CORPUSCULAR HEMOGLOBIN 28.7 pg (28.0-32.0); MEAN CORPUSCULAR VOLUME 88.6 fL (81.0-99.0); MEAN PLATELET VOLUME 8.3 fl (7.4-10.4); MONOCYTES % 6.5 % (2.0-8.0); NEUTROPHILS % 85.8 % (40.0-76.0); PLATELET 166 x1000/uL (130-400); RED BLOOD CELL COUNT 4.66 mill/uL (4.2-5.4); RED CELL DISTRIBUTION WIDTH 17.6 % (11.6-14.6)
[2019-06-11 06:20] LABS: CHLORIDE 103 mEq/L (98-107)
[2019-06-11 06:25] LABS: PHOSPHORUS 2.7 mg/dL (2.5-4.9)
[2019-06-11] MEDS: POTASSIUM CHLORIDE 20MEQ/PACKET NG SCH (08:12)
[2019-06-11] MEDS: ASCORBIC ACID 500 MG TABLET PO SCH ×2 (08:12→21:29)
[2019-06-11] MEDS: THIAMINE HCL 100MG TABLET PO SCH ×2 (08:13→17:35)
[2019-06-11] MEDS: FLUDROCORTISONE ACETATE 0.1MG TABLET PO SCH (08:13)
[2019-06-11] MEDS: ZINC SULFATE 220 MG ( 50 ) CAPSULE PO SCH (08:13)
[2019-06-11] MEDS: MIDODRINE HCL 5MG TABLET PO SCH ×3 (08:13→17:35)
[2019-06-11 09:14] LABS: BG BASE EXCESS -6.2 mmol/L (-2.0-2.0); BG CARBOXYHEMOGLOBIN 0.3 % (0.5-1.5); BG DEOXYHEMOGLOBIN 1.8 % (0.0-5.0); BG FRACTION INSPIRED OXYGEN 30; BG HCO3 ACT 14.1 mmol/L (22.0-26.0); BG METHEMOGLOBIN 0.5 % (0.0-1.5); BG OXYGEN SATURATION 98.2 % (92.0-98.5); BG OXYHEMOGLOBIN 97.4 % (94.0-97.0); BG PCO2 16.8 mmHg (35.0-45.0); BG PH 7.543 (7.350-7.450); BG PO2 128.4 mmHg (75.0-100.0); BG SAMPLE SITE RIGHT RADIAL; BG TIDAL VOLUME(mL) 450 mL; BG TOTAL HEMOGLOBIN 11.1 g/dL (12.0-18.0); BG VENT MODE VENT - A/C; BG VENT RATE 20 set
[2019-06-11] MEDS: SODIUM BICARBONATE 150 MEQ in DEXTROSE 5% WATER 1,000 ML IV SCH (09:47)
[2019-06-11] MEDS ORDERED: MAGNESIUM 2 G PREMIX 50 ML IV NR (12:00)
[2019-06-11] MEDS ORDERED: PROPOFOL 10MG/ML 100ML 100 ML IV PRN (19:30)
[2019-06-12] VITALS (86 sets, daily range): BP systolic 80–119; BP diastolic 43–79
[2019-06-12] MEDS: IPRATROPIUM BROMIDE (0.02%) 0.5MG/2.5ML NEB HHN SCH ×4 (00:12→20:28)
[2019-06-12] MEDS: SODIUM BICARBONATE 150 MEQ in DEXTROSE 5% WATER 1,000 ML IV SCH ×2 (00:59→17:33)
[2019-06-12] MEDS: BLOOD SUGAR DIAGNOSTIC STRIP TEST SCH ×5 (00:59→23:16)
[2019-06-12] MEDS: PHENYLEPHRINE 80 MG in DEXT 5% WATER 492 ML IV PRN ×3 (02:27→17:33)
[2019-06-12] MEDS: METOCLOPRAMIDE HCL 10MG/2ML VIAL IV SCH ×3 (05:03→17:39)
[2019-06-12 05:53] LABS: HEMATOCRIT. 34.5 % (36.0-48.0); HEMOGLOBIN. 11.3 g/dL (12.0-16.0); MEAN CORPUSCULAR HEMOGLOBIN 28.2 pg (28.0-32.0); MEAN CORPUSCULAR VOLUME 85.9 fL (81.0-99.0); MEAN PLATELET VOLUME 8.4 fl (7.4-10.4); PLATELET 183 x1000/uL (130-400); RED BLOOD CELL COUNT 4.01 mill/uL (4.2-5.4); RED CELL DISTRIBUTION WIDTH 17.9 % (11.6-14.6)
[2019-06-12 05:54] LABS: CHLORIDE 103 mEq/L (98-107)
[2019-06-12] MEDS: ASCORBIC ACID 500 MG TABLET PO SCH ×2 (08:07→20:43)
[2019-06-12] MEDS: POTASSIUM CHLORIDE 20MEQ/PACKET NG SCH (08:07)
[2019-06-12] MEDS: ZINC SULFATE 220 MG ( 50 ) CAPSULE PO SCH (08:07)
[2019-06-12] MEDS: MIDODRINE HCL 5MG TABLET PO SCH ×3 (08:07→17:39)
[2019-06-12] MEDS: THIAMINE HCL 100MG TABLET PO SCH ×2 (08:07→17:39)
[2019-06-12] MEDS: FLUDROCORTISONE ACETATE 0.1MG TABLET PO SCH (08:08)
[2019-06-12 08:18] LABS: BG BASE EXCESS 3.4 mmol/L (-2.0-2.0); BG CARBOXYHEMOGLOBIN 0.3 % (0.5-1.5); BG DEOXYHEMOGLOBIN 1.1 % (0.0-5.0); BG FRACTION INSPIRED OXYGEN 30; BG HCO3 ACT 24.2 mmol/L (22.0-26.0); BG METHEMOGLOBIN 0.2 % (0.0-1.5); BG OXYGEN SATURATION 98.9 % (92.0-98.5); BG OXYHEMOGLOBIN 98.4 % (94.0-97.0); BG PCO2 25.4 mmHg (35.0-45.0); BG PH 7.596 (7.350-7.450); BG PO2 146.1 mmHg (75.0-100.0); BG SAMPLE SITE RIGHT RADIAL; BG TIDAL VOLUME(mL) 450 mL; BG TOTAL HEMOGLOBIN 11.4 g/dL (12.0-18.0); BG VENT MODE VENT - A/C; BG VENT RATE 20 set
[2019-06-12 11:58] LABS: PLATELET ESTIMATE NORMAL
[2019-06-12] MEDS ORDERED: PROPOFOL 10MG/ML 100ML 100 ML IV PRN (23:45)
[2019-06-13] VITALS (94 sets, daily range): BP systolic 58–129; BP diastolic 44–82
[2019-06-13] MEDS: LORAZEPAM 2MG/ML CPJ IV PRN (00:11)
[2019-06-13] MEDS: METOCLOPRAMIDE HCL 10MG/2ML VIAL IV SCH ×4 (00:11→17:15)
[2019-06-13] MEDS: PHENYLEPHRINE 80 MG in DEXT 5% WATER 492 ML IV PRN ×2 (01:02→11:29)
[2019-06-13] MEDS: IPRATROPIUM BROMIDE (0.02%) 0.5MG/2.5ML NEB HHN SCH ×4 (01:36→19:55)
[2019-06-13] MEDS ORDERED: CEFEPIME 1,000 MG in DEXTROSE 5% WATER 50 ML IV SCH (05:00)
[2019-06-13] MEDS: MICAFUNGIN 100 MG in SODIUM CHLORIDE 0.9% 100 ML IV SCH (05:00)
[2019-06-13] MEDS: BLOOD SUGAR DIAGNOSTIC STRIP TEST SCH ×3 (05:24→17:15)
[2019-06-13] MEDS ORDERED: VANCOMYCIN 1 G PREMIX 200 ML IV SCH (06:00)
[2019-06-13] MEDS: SODIUM BICARBONATE 150 MEQ in DEXTROSE 5% WATER 1,000 ML IV SCH (06:32)
[2019-06-13 07:58] LABS: HEMATOCRIT. 34.4 % (36.0-48.0); HEMOGLOBIN. 11.2 g/dL (12.0-16.0); MEAN CORPUSCULAR HEMOGLOBIN 28.3 pg (28.0-32.0); MEAN CORPUSCULAR VOLUME 87.3 fL (81.0-99.0); MEAN PLATELET VOLUME 8.8 fl (7.4-10.4); PLATELET 156 x1000/uL (130-400); RED BLOOD CELL COUNT 3.94 mill/uL (4.2-5.4); RED CELL DISTRIBUTION WIDTH 17.9 % (11.6-14.6)
[2019-06-13] MEDS: FLUDROCORTISONE ACETATE 0.1MG TABLET PO SCH (08:31)
[2019-06-13] MEDS: THIAMINE HCL 100MG TABLET PO SCH ×2 (08:31→17:15)
[2019-06-13] MEDS: MIDODRINE HCL 5MG TABLET PO SCH ×3 (08:31→17:15)
[2019-06-13] MEDS: ASCORBIC ACID 500 MG TABLET PO SCH ×2 (08:31→20:58)
[2019-06-13] MEDS: ZINC SULFATE 220 MG ( 50 ) CAPSULE PO SCH (08:31)
[2019-06-13] MEDS: POTASSIUM CHLORIDE 20MEQ/PACKET NG SCH (08:32)
[2019-06-13 08:35] LABS: BG BASE EXCESS 4.4 mmol/L (-2.0-2.0); BG CARBOXYHEMOGLOBIN 0.1 % (0.5-1.5); BG DEOXYHEMOGLOBIN 1.3 % (0.0-5.0); BG FRACTION INSPIRED OXYGEN 30; BG HCO3 ACT 26.2 mmol/L (22.0-26.0); BG METHEMOGLOBIN 0.1 % (0.0-1.5); BG OXYGEN SATURATION 98.7 % (92.0-98.5); BG OXYHEMOGLOBIN 98.5 % (94.0-97.0); BG PCO2 29.9 mmHg (35.0-45.0); BG PO2 126.2 mmHg (75.0-100.0); BG SAMPLE SITE RIGHT RADIAL; BG TIDAL VOLUME(mL) 450 mL; BG TOTAL HEMOGLOBIN 11.7 g/dL (12.0-18.0); BG VENT MODE VENT - A/C; BG VENT RATE 14 set
[2019-06-13 09:00] LABS: CHLORIDE 99 mEq/L (98-107)
[2019-06-13 09:50] LABS: PLATELET ESTIMATE NORMAL
[2019-06-13] MEDS ORDERED: POTASSIUM CHLORIDE INJ 40 MEQ in DEXT 5% WATER 250 ML IV SCH (13:00)
[2019-06-13] MEDS ORDERED: SODIUM CHLORIDE 0.9% 1,000 ML IV SCH (15:45)
[2019-06-13] MEDS: VANCOMYCIN 500 MG PREMIX 100 ML IV SCH (17:15)
[2019-06-14] VITALS (94 sets, daily range): BP systolic 73–113; BP diastolic 43–73
[2019-06-14] MEDS: BLOOD SUGAR DIAGNOSTIC STRIP TEST SCH ×4 (00:06→18:31)
[2019-06-14] MEDS: METOCLOPRAMIDE HCL 10MG/2ML VIAL IV SCH ×4 (00:06→17:24)
[2019-06-14] MEDS: DEXTROSE 50% WATER 50ML SYRINGE IV PRN ×2 (00:45→11:27)
[2019-06-14] MEDS: IPRATROPIUM BROMIDE (0.02%) 0.5MG/2.5ML NEB HHN SCH ×4 (01:51→20:24)
[2019-06-14] MEDS: MICAFUNGIN 100 MG in SODIUM CHLORIDE 0.9% 100 ML IV SCH (03:25)
[2019-06-14] MEDS: LORAZEPAM 2MG/ML CPJ IV PRN (05:18)
[2019-06-14] MEDS: VANCOMYCIN 500 MG PREMIX 100 ML IV SCH ×2 (05:18→17:24)
[2019-06-14 05:52] LABS: HEMATOCRIT. 36.1 % (36.0-48.0); HEMOGLOBIN. 11.6 g/dL (12.0-16.0); MEAN CORPUSCULAR HEMOGLOBIN 28.4 pg (28.0-32.0); MEAN CORPUSCULAR VOLUME 88.7 fL (81.0-99.0); MEAN PLATELET VOLUME 8.5 fl (7.4-10.4); PLATELET 130 x1000/uL (130-400); RED BLOOD CELL COUNT 4.07 mill/uL (4.2-5.4)
[2019-06-14 06:14] LABS: CHLORIDE 97 mEq/L (98-107)
[2019-06-14 08:29] LABS: BG BASE EXCESS 1.6 mmol/L (-2.0-2.0); BG CARBOXYHEMOGLOBIN 0.3 % (0.5-1.5); BG DEOXYHEMOGLOBIN 1.5 % (0.0-5.0); BG FRACTION INSPIRED OXYGEN 30; BG HCO3 ACT 23.5 mmol/L (22.0-26.0); BG METHEMOGLOBIN 0.4 % (0.0-1.5); BG OXYGEN SATURATION 98.5 % (92.0-98.5); BG OXYHEMOGLOBIN 97.8 % (94.0-97.0); BG PCO2 28.3 mmHg (35.0-45.0); BG PH 7.537 (7.350-7.450); BG PO2 129.9 mmHg (75.0-100.0); BG SAMPLE SITE RIGHT RADIAL; BG TIDAL VOLUME(mL) 450 mL; BG VENT MODE VENT - A/C; BG VENT RATE 12 set
[2019-06-14 08:49] LABS: PLATELET ESTIMATE NORMAL
[2019-06-14] MEDS: MIDODRINE HCL 5MG TABLET PO SCH ×3 (09:00→17:25)
[2019-06-14] MEDS: POTASSIUM CHLORIDE 20MEQ/PACKET NG SCH (09:01)
[2019-06-14] MEDS: ZINC SULFATE 220 MG ( 50 ) CAPSULE PO SCH (09:01)
[2019-06-14] MEDS: ASCORBIC ACID 500 MG TABLET PO SCH ×2 (09:01→20:36)
[2019-06-14] MEDS: FLUDROCORTISONE ACETATE 0.1MG TABLET PO SCH (09:01)
[2019-06-14] MEDS: THIAMINE HCL 100MG TABLET PO SCH ×2 (09:01→17:24)
[2019-06-14] MEDS: DEXT 5%/0.9% NACL 1,000 ML IV SCH (11:26)
[2019-06-14] MEDS ORDERED: ALBUMIN HUMAN 25GM/500ML (5%) IV SCH (14:00)
[2019-06-14 16:43] LABS: INR 1.1; PROTHROMBIN TIME 11.4 sec (9.6-11.0)
[2019-06-14] MEDS: PHENYLEPHRINE 80 MG in DEXT 5% WATER 492 ML IV PRN (21:34)
[2019-06-15] VITALS (93 sets, daily range): BP systolic 82–120; BP diastolic 44–71
[2019-06-15] MEDS: BLOOD SUGAR DIAGNOSTIC STRIP TEST SCH ×5 (00:07→23:54)
[2019-06-15] MEDS: IPRATROPIUM BROMIDE (0.02%) 0.5MG/2.5ML NEB HHN SCH ×4 (00:14→20:44)
[2019-06-15] MEDS: METOCLOPRAMIDE HCL 10MG/2ML VIAL IV SCH ×5 (00:16→23:53)
[2019-06-15] MEDS: MICAFUNGIN 100 MG in SODIUM CHLORIDE 0.9% 100 ML IV SCH (03:51)
[2019-06-15 06:04] LABS: HEMOGLOBIN. 9.3 g/dL (12.0-16.0); MEAN CORPUSCULAR HEMOGLOBIN 28.8 pg (28.0-32.0); MEAN CORPUSCULAR VOLUME 87.1 fL (81.0-99.0); MEAN PLATELET VOLUME 8.6 fl (7.4-10.4); PLATELET 126 x1000/uL (130-400); RED BLOOD CELL COUNT 3.21 mill/uL (4.2-5.4); RED CELL DISTRIBUTION WIDTH 17.5 % (11.6-14.6)
[2019-06-15] MEDS: VANCOMYCIN 500 MG PREMIX 100 ML IV SCH (06:22)
[2019-06-15] MEDS: DEXT 5%/0.9% NACL 1,000 ML IV SCH (06:22)
[2019-06-15 06:34] LABS: CHLORIDE 103 mEq/L (98-107)
[2019-06-15] MEDS ORDERED: POTASSIUM CHLORIDE 20MEQ/PACKET PO NR (07:00)
[2019-06-15] MEDS ORDERED: POTASSIUM CHLORIDE INJ 40 MEQ in DEXT 5% WATER 250 ML IV NR ×2 (08:00→13:30)
[2019-06-15] MEDS: POTASSIUM CHLORIDE 20MEQ/PACKET NG SCH (08:50)
[2019-06-15] MEDS: ASCORBIC ACID 500 MG TABLET PO SCH ×2 (08:50→21:28)
[2019-06-15] MEDS: THIAMINE HCL 100MG TABLET PO SCH ×2 (08:50→18:13)
[2019-06-15] MEDS: ZINC SULFATE 220 MG ( 50 ) CAPSULE PO SCH (08:51)
[2019-06-15] MEDS: MIDODRINE HCL 5MG TABLET PO SCH ×3 (08:51→18:13)
[2019-06-15] MEDS: FLUDROCORTISONE ACETATE 0.1MG TABLET PO SCH (08:51)
[2019-06-15 09:58] LABS: BG BASE EXCESS 0.7 mmol/L (-2.0-2.0); BG DEOXYHEMOGLOBIN 4.8 % (0.0-5.0); BG FRACTION INSPIRED OXYGEN 30; BG HCO3 ACT 23.4 mmol/L (22.0-26.0); BG METHEMOGLOBIN 0.3 % (0.0-1.5); BG OXYGEN SATURATION 95.2 % (92.0-98.5); BG OXYHEMOGLOBIN 94.9 % (94.0-97.0); BG PCO2 30.5 mmHg (35.0-45.0); BG PH 7.502 (7.350-7.450); BG PRESSURE SUPPORT 12; BG SAMPLE SITE RIGHT RADIAL; BG TIDAL VOLUME(mL) 450 mL; BG TOTAL HEMOGLOBIN 9.7 g/dL (12.0-18.0); BG VENT MODE VENT - SIMV; BG VENT RATE 8 set
[2019-06-15 11:27] LABS: BG BASE EXCESS 3.6 mmol/L (-2.0-2.0); BG CARBOXYHEMOGLOBIN 0.3 % (0.5-1.5); BG DEOXYHEMOGLOBIN 6.5 % (0.0-5.0); BG FRACTION INSPIRED OXYGEN 30; BG HCO3 ACT 26.3 mmol/L (22.0-26.0); BG METHEMOGLOBIN 0.3 % (0.0-1.5); BG OXYGEN SATURATION 93.5 % (92.0-98.5); BG OXYHEMOGLOBIN 92.9 % (94.0-97.0); BG PCO2 32.9 mmHg (35.0-45.0); BG PO2 69.2 mmHg (75.0-100.0); BG PRESSURE SUPPORT 8; BG SAMPLE SITE RIGHT RADIAL; BG TOTAL HEMOGLOBIN 10.5 g/dL (12.0-18.0); BG VENT MODE VENT - CPAP
[2019-06-15 11:58] LABS: PLATELET ESTIMATE SLIGHTLY INCREASED
[2019-06-15 14:26] LABS: PHOSPHORUS 2.9 mg/dL (2.5-4.9)
[2019-06-15] MEDS: PANTOPRAZOLE SODIUM 40 MG/VIAL IV SCH (18:12)
[2019-06-15] MEDS ORDERED: DIGOXIN 500MCG/2ML AMP IV NR (18:30)
[2019-06-15 22:26] LABS: BG BASE EXCESS -0.5 mmol/L (-2.0-2.0); BG BILEVEL POS AIRWAY PRESSURE 15/5; BG DEOXYHEMOGLOBIN 5.1 % (0.0-5.0); BG FRACTION INSPIRED OXYGEN 60; BG HCO3 ACT 23.1 mmol/L (22.0-26.0); BG METHEMOGLOBIN 0.3 % (0.0-1.5); BG OXYGEN SATURATION 94.9 % (92.0-98.5); BG OXYHEMOGLOBIN 94.6 % (94.0-97.0); BG PCO2 33.9 mmHg (35.0-45.0); BG PH 7.451 (7.350-7.450); BG PO2 74.4 mmHg (75.0-100.0); BG SAMPLE SITE RIGHT RADIAL; BG TOTAL HEMOGLOBIN 10.6 g/dL (12.0-18.0); BG VENT MODE MASK - BIPAP
[2019-06-15] MEDS ORDERED: MAGNESIUM 2 G PREMIX 50 ML IV NR (22:30)
[2019-06-15] MEDS: DEXTROSE 50% WATER 50ML SYRINGE IV PRN (23:54)
[2019-06-16] VITALS (63 sets, daily range): BP systolic 85–119; BP diastolic 51–76
[2019-06-16] MEDS: VANCOMYCIN 500 MG PREMIX 100 ML IV SCH ×2 (00:24→17:21)
[2019-06-16] MEDS: IPRATROPIUM BROMIDE (0.02%) 0.5MG/2.5ML NEB HHN SCH ×4 (02:04→21:54)
[2019-06-16] MEDS: DEXT 5%/0.9% NACL 1,000 ML IV SCH ×2 (03:00→21:53)
[2019-06-16] MEDS: MICAFUNGIN 100 MG in SODIUM CHLORIDE 0.9% 100 ML IV SCH (04:31)
[2019-06-16 05:46] LABS: HEMATOCRIT. 29.4 % (36.0-48.0); HEMOGLOBIN. 9.3 g/dL (12.0-16.0); MEAN CORPUSCULAR HEMOGLOBIN 28.3 pg (28.0-32.0); MEAN CORPUSCULAR VOLUME 89.4 fL (81.0-99.0); MEAN PLATELET VOLUME 8.4 fl (7.4-10.4); PLATELET 152 x1000/uL (130-400); RED BLOOD CELL COUNT 3.29 mill/uL (4.2-5.4); RED CELL DISTRIBUTION WIDTH 18.3 % (11.6-14.6)
[2019-06-16] MEDS: BLOOD SUGAR DIAGNOSTIC STRIP TEST SCH ×3 (05:56→17:28)
[2019-06-16 05:57] LABS: PARTIAL THROMBOPLASTIN TIME 33.5 sec (23.4-31.0); PROTHROMBIN TIME 10.6 sec (9.6-11.0)
[2019-06-16 06:01] LABS: CHLORIDE 107 mEq/L (98-107)
[2019-06-16] MEDS: METOCLOPRAMIDE HCL 10MG/2ML VIAL IV SCH ×3 (06:03→17:27)
[2019-06-16 06:31] LABS: DIGOXIN 1.5 ng/mL (0.9-2.0)
[2019-06-16 08:08] LABS: PLATELET ESTIMATE NORMAL
[2019-06-16] MEDS: PANTOPRAZOLE SODIUM 40 MG/VIAL IV SCH ×2 (08:30→17:21)
[2019-06-16] MEDS: POTASSIUM CHLORIDE 20MEQ/PACKET NG SCH (08:30)
[2019-06-16] MEDS: FLUDROCORTISONE ACETATE 0.1MG TABLET PO SCH (08:31)
[2019-06-16] MEDS: THIAMINE HCL 100MG TABLET PO SCH ×2 (08:31→17:21)
[2019-06-16] MEDS: MIDODRINE HCL 5MG TABLET PO SCH ×3 (08:31→17:22)
[2019-06-16] MEDS: MAGNESIUM OXIDE 400MG TABLET PO SCH (08:31)
[2019-06-16] MEDS: ASCORBIC ACID 500 MG TABLET PO SCH ×2 (08:31→20:54)
[2019-06-16] MEDS: ZINC SULFATE 220 MG ( 50 ) CAPSULE PO SCH (08:32)
[2019-06-16] MEDS ORDERED: CEFEPIME 1,000 MG in DEXTROSE 5% WATER 50 ML IV SCH (11:15)
[2019-06-16] MEDS: CEFEPIME 1,000 MG in DEXTROSE 5% WATER 50 ML IV SCH (12:18)
[2019-06-16] MEDS: DIGOXIN 500MCG/2ML AMP IV SCH (17:28)
[2019-06-17] VITALS (45 sets, daily range): BP systolic 77–119; BP diastolic 58–89
[2019-06-17] MEDS: METOCLOPRAMIDE HCL 10MG/2ML VIAL IV SCH ×4 (00:17→17:31)
[2019-06-17] MEDS: BLOOD SUGAR DIAGNOSTIC STRIP TEST SCH ×4 (00:30→17:31)
[2019-06-17] MEDS: IPRATROPIUM BROMIDE (0.02%) 0.5MG/2.5ML NEB HHN SCH ×4 (02:18→20:50)
[2019-06-17] MEDS: MICAFUNGIN 100 MG in SODIUM CHLORIDE 0.9% 100 ML IV SCH (04:47)
[2019-06-17 05:18] LABS: HEMATOCRIT. 29.5 % (36.0-48.0); HEMOGLOBIN. 9.4 g/dL (12.0-16.0); MEAN CORPUSCULAR HEMOGLOBIN 28.8 pg (28.0-32.0); MEAN CORPUSCULAR VOLUME 90.3 fL (81.0-99.0); MEAN PLATELET VOLUME 8.3 fl (7.4-10.4); PLATELET 163 x1000/uL (130-400); RED BLOOD CELL COUNT 3.27 mill/uL (4.2-5.4); RED CELL DISTRIBUTION WIDTH 17.9 % (11.6-14.6)
[2019-06-17 05:34] LABS: CHLORIDE 109 mEq/L (98-107)
[2019-06-17 07:30] LABS: PLATELET ESTIMATE NORMAL
[2019-06-17 08:40] LABS: BG BASE EXCESS -1.9 mmol/L (-2.0-2.0); BG CARBOXYHEMOGLOBIN 0.3 % (0.5-1.5); BG DEOXYHEMOGLOBIN 3.3 % (0.0-5.0); BG FRACTION INSPIRED OXYGEN 60; BG HCO3 ACT 21.2 mmol/L (22.0-26.0); BG METHEMOGLOBIN 0.3 % (0.0-1.5); BG OXYGEN SATURATION 96.7 % (92.0-98.5); BG OXYHEMOGLOBIN 96.1 % (94.0-97.0); BG PCO2 30.4 mmHg (35.0-45.0); BG PH 7.462 (7.350-7.450); BG PO2 88.8 mmHg (75.0-100.0); BG SAMPLE SITE RIGHT BRACHIAL; BG TOTAL HEMOGLOBIN 9.6 g/dL (12.0-18.0); BG VENT MODE MASK - BIPAP; BG VENT RATE 16 set
[2019-06-17] MEDS: ASCORBIC ACID 500 MG TABLET PO SCH ×2 (08:42→21:54)
[2019-06-17] MEDS: FLUDROCORTISONE ACETATE 0.1MG TABLET PO SCH (08:42)
[2019-06-17] MEDS: THIAMINE HCL 100MG TABLET PO SCH ×2 (08:42→17:30)
[2019-06-17] MEDS: POTASSIUM CHLORIDE 20MEQ/PACKET NG SCH (08:42)
[2019-06-17] MEDS: MAGNESIUM OXIDE 400MG TABLET PO SCH (08:43)
[2019-06-17] MEDS: ZINC SULFATE 220 MG ( 50 ) CAPSULE PO SCH (08:43)
[2019-06-17] MEDS: MIDODRINE HCL 5MG TABLET PO SCH ×3 (08:43→17:31)
[2019-06-17] MEDS: VANCOMYCIN 500 MG PREMIX 100 ML IV SCH (13:19)
[2019-06-17] MEDS: CEFEPIME 1,000 MG in DEXTROSE 5% WATER 50 ML IV SCH (13:19)
[2019-06-17] MEDS: LOPERAMIDE HCL 2MG CAPSULE PO PRN (13:30)
[2019-06-17 14:21] LABS: T4 FREE 0.88 ng/dL (0.76-1.46)
[2019-06-17] MEDS: DIGOXIN 500MCG/2ML AMP IV SCH (17:31)
[2019-06-17] MEDS: DEXT 5%/0.9% NACL 1,000 ML IV SCH (17:31)
[2019-06-17 17:58] LABS: FOLIC ACID (FOLATE) SERUM 4.1 ng/mL (>5.38)
[2019-06-18] VITALS (43 sets, daily range): BP systolic 84–145; BP diastolic 42–89
[2019-06-18] MEDS: IPRATROPIUM BROMIDE (0.02%) 0.5MG/2.5ML NEB HHN SCH ×4 (02:22→20:43)
[2019-06-18] MEDS: MICAFUNGIN 100 MG in SODIUM CHLORIDE 0.9% 100 ML IV SCH (04:20)
[2019-06-18] MEDS: METOCLOPRAMIDE HCL 10MG/2ML VIAL IV SCH ×5 (05:46→23:17)
[2019-06-18] MEDS: BLOOD SUGAR DIAGNOSTIC STRIP TEST SCH ×4 (05:46→18:59)
[2019-06-18] MEDS: VANCOMYCIN 500 MG PREMIX 100 ML IV SCH ×2 (05:46→05:54)
[2019-06-18] MEDS: MAGNESIUM OXIDE 400MG TABLET PO SCH (09:29)
[2019-06-18] MEDS: ASCORBIC ACID 500 MG TABLET PO SCH ×2 (09:29→22:03)
[2019-06-18] MEDS: FLUDROCORTISONE ACETATE 0.1MG TABLET PO SCH (09:29)
[2019-06-18] MEDS: THIAMINE HCL 100MG TABLET PO SCH ×2 (09:29→17:34)
[2019-06-18] MEDS: ZINC SULFATE 220 MG ( 50 ) CAPSULE PO SCH (09:29)
[2019-06-18] MEDS: MIDODRINE HCL 5MG TABLET PO SCH ×3 (09:29→17:34)
[2019-06-18] MEDS: POTASSIUM CHLORIDE 20MEQ/PACKET NG SCH (09:30)
[2019-06-18 09:56] LABS: HEMOGLOBIN. 8.7 g/dL (12.0-16.0); MEAN CORPUSCULAR HEMOGLOBIN 28.2 pg (28.0-32.0); MEAN CORPUSCULAR VOLUME 90.9 fL (81.0-99.0); MEAN PLATELET VOLUME 8.3 fl (7.4-10.4); PLATELET 144 x1000/uL (130-400); RED BLOOD CELL COUNT 3.08 mill/uL (4.2-5.4)
[2019-06-18 09:58] LABS: BG BILEVEL POS AIRWAY PRESSURE 15/5; BG CARBOXYHEMOGLOBIN 0.3 % (0.5-1.5); BG DEOXYHEMOGLOBIN 4.4 % (0.0-5.0); BG FRACTION INSPIRED OXYGEN 70; BG HCO3 ACT 19.8 mmol/L (22.0-26.0); BG METHEMOGLOBIN 0.3 % (0.0-1.5); BG OXYGEN SATURATION 95.6 % (92.0-98.5); BG PCO2 31.1 mmHg (35.0-45.0); BG PH 7.421 (7.350-7.450); BG PO2 79.4 mmHg (75.0-100.0); BG SAMPLE SITE RIGHT BRACHIAL; BG TOTAL HEMOGLOBIN 9.6 g/dL (12.0-18.0); BG VENT MODE MASK - BIPAP; BG VENT RATE 16 set
[2019-06-18 10:04] LABS: CHLORIDE 114 mEq/L (98-107)
[2019-06-18 10:13] LABS: VANCOMYCIN TROUGH 12.7 ug/mL (5.0-10.0)
[2019-06-18] MEDS: DEXTROSE 50% WATER 50ML SYRINGE IV PRN (11:30)
[2019-06-18 11:59] LABS: PLATELET ESTIMATE NORMAL
[2019-06-18] MEDS: DEXT 5%/0.9% NACL 1,000 ML IV SCH (13:11)
[2019-06-18] MEDS: CEFEPIME 1,000 MG in DEXTROSE 5% WATER 50 ML IV SCH (13:13)
[2019-06-18] MEDS: VANCOMYCIN 1 G PREMIX 200 ML IV SCH (15:36)
[2019-06-18] MEDS: DIGOXIN 500MCG/2ML AMP IV SCH (17:34)
[2019-06-19] VITALS (51 sets, daily range): BP systolic 53–144; BP diastolic 15–120
[2019-06-19] MEDS: IPRATROPIUM BROMIDE (0.02%) 0.5MG/2.5ML NEB HHN SCH ×4 (00:53→21:29)
[2019-06-19] MEDS: MICAFUNGIN 100 MG in SODIUM CHLORIDE 0.9% 100 ML IV SCH (03:48)
[2019-06-19 05:45] LABS: CHLORIDE 115 mEq/L (98-107)
[2019-06-19 05:47] LABS: HEMATOCRIT. 29.5 % (36.0-48.0); HEMOGLOBIN. 9.1 g/dL (12.0-16.0); MEAN CORPUSCULAR HEMOGLOBIN 28.4 pg (28.0-32.0); MEAN CORPUSCULAR VOLUME 92.2 fL (81.0-99.0); MEAN PLATELET VOLUME 8.3 fl (7.4-10.4); PLATELET 146 x1000/uL (130-400); RED CELL DISTRIBUTION WIDTH 17.9 % (11.6-14.6)
[2019-06-19] MEDS: METOCLOPRAMIDE HCL 10MG/2ML VIAL IV SCH ×3 (06:12→17:25)
[2019-06-19] MEDS: BLOOD SUGAR DIAGNOSTIC STRIP TEST SCH ×5 (06:12→21:30)
[2019-06-19] MEDS: MIDODRINE HCL 5MG TABLET PO SCH ×3 (09:02→17:25)
[2019-06-19] MEDS: MAGNESIUM OXIDE 400MG TABLET PO SCH (09:02)
[2019-06-19] MEDS: VANCOMYCIN 1 G PREMIX 200 ML IV SCH (09:02)
[2019-06-19] MEDS: ZINC SULFATE 220 MG ( 50 ) CAPSULE PO SCH (09:03)
[2019-06-19] MEDS: POTASSIUM CHLORIDE 20MEQ/PACKET NG SCH (09:03)
[2019-06-19] MEDS: FLUDROCORTISONE ACETATE 0.1MG TABLET PO SCH (09:03)
[2019-06-19] MEDS: THIAMINE HCL 100MG TABLET PO SCH ×2 (09:03→17:25)
[2019-06-19] MEDS: ASCORBIC ACID 500 MG TABLET PO SCH (09:05)
[2019-06-19 09:10] LABS: PLATELET ESTIMATE NORMAL
[2019-06-19] MEDS: DEXT 5%/0.9% NACL 1,000 ML IV SCH (11:00)
[2019-06-19 11:53] LABS: BG BASE EXCESS -6.9 mmol/L (-2.0-2.0); BG BILEVEL POS AIRWAY PRESSURE 15/5; BG CARBOXYHEMOGLOBIN 0.3 % (0.5-1.5); BG DEOXYHEMOGLOBIN 9.6 % (0.0-5.0); BG FRACTION INSPIRED OXYGEN 80; BG HCO3 ACT 17.7 mmol/L (22.0-26.0); BG METHEMOGLOBIN 0.6 % (0.0-1.5); BG OXYGEN SATURATION 90.3 % (92.0-98.5); BG OXYHEMOGLOBIN 89.5 % (94.0-97.0); BG PCO2 32.4 mmHg (35.0-45.0); BG PH 7.356 (7.350-7.450); BG PO2 61.7 mmHg (75.0-100.0); BG SAMPLE SITE RIGHT RADIAL; BG VENT MODE MASK - BIPAP
[2019-06-19] MEDS: CEFEPIME 1,000 MG in DEXTROSE 5% WATER 50 ML IV SCH (14:51)
[2019-06-19] MEDS: DIGOXIN 500MCG/2ML AMP IV SCH (17:25)
[2019-06-19] MEDS ORDERED: DOPAMINE 800MG PREMIX (DOUBLE) 250 ML IV PRN (20:30)
[2019-06-19 20:51] LABS: CHLORIDE 113 mEq/L (98-107)
[2019-06-19] MEDS: NOREPINEPHRINE 32 MG in DEXT 5% WATER 468 ML IV PRN (21:07)
[2019-06-19 21:18] LABS: BG BASE EXCESS -9.2 mmol/L (-2.0-2.0); BG BILEVEL POS AIRWAY PRESSURE 15/5; BG CARBOXYHEMOGLOBIN 0.3 % (0.5-1.5); BG DEOXYHEMOGLOBIN 11.3 % (0.0-5.0); BG FRACTION INSPIRED OXYGEN 100; BG HCO3 ACT 17.7 mmol/L (22.0-26.0); BG OXYGEN SATURATION 88.7 % (92.0-98.5); BG OXYHEMOGLOBIN 88.4 % (94.0-97.0); BG PCO2 42.2 mmHg (35.0-45.0); BG PO2 63.9 mmHg (75.0-100.0); BG SAMPLE SITE LEFT RADIAL; BG TOTAL HEMOGLOBIN 10.3 g/dL (12.0-18.0); BG VENT MODE MASK - BIPAP; BG VENT RATE 20 set
[2019-06-19] MEDS: PHENYLEPHRINE 80 MG in DEXT 5% WATER 492 ML IV PRN (21:22)
[2019-06-19] MEDS: INSULIN LISPRO 100 UNITS/ML SUBCUT SCH (21:30)
[2019-06-19] MEDS ORDERED: SUCCINYLCHOLINE CHLORIDE 200MG/10ML IV ONE (21:52)
[2019-06-19] MEDS ORDERED: ETOMIDATE 2MG/ML 10ML VIAL IV ONE (21:52)
[2019-06-19 22:42] LABS: BG BASE EXCESS -10.1 mmol/L (-2.0-2.0); BG CARBOXYHEMOGLOBIN 0.3 % (0.5-1.5); BG DEOXYHEMOGLOBIN 3.1 % (0.0-5.0); BG FRACTION INSPIRED OXYGEN 100; BG HCO3 ACT 14.6 mmol/L (22.0-26.0); BG METHEMOGLOBIN 0.3 % (0.0-1.5); BG OXYGEN SATURATION 96.9 % (92.0-98.5); BG OXYHEMOGLOBIN 96.3 % (94.0-97.0); BG PCO2 28.3 mmHg (35.0-45.0); BG PO2 93.2 mmHg (75.0-100.0); BG SAMPLE SITE LEFT RADIAL; BG TIDAL VOLUME(mL) 450 mL; BG TOTAL HEMOGLOBIN 10.7 g/dL (12.0-18.0); BG VENT MODE VENT - A/C; BG VENT RATE 30 set
[2019-06-19] MEDS ORDERED: PROPOFOL 10MG/ML 100ML 100 ML IV PRN (23:15)
[2019-06-20] VITALS (84 sets, daily range): BP systolic 40–150; BP diastolic 17–111
[2019-06-20] MEDS: ASCORBIC ACID 500 MG TABLET PO SCH ×3 (01:46→20:36)
[2019-06-20] MEDS: METOCLOPRAMIDE HCL 10MG/2ML VIAL IV SCH ×4 (01:46→17:40)
[2019-06-20] MEDS: INSULIN LISPRO 100 UNITS/ML SUBCUT SCH ×4 (01:46→18:00)
[2019-06-20] MEDS: IPRATROPIUM BROMIDE (0.02%) 0.5MG/2.5ML NEB HHN SCH ×4 (01:50→20:09)
[2019-06-20] MEDS: VASOPRESSIN 10 UNIT in SODIUM CHLORIDE 0.9% 99.5 ML IV PRN ×4 (01:55→20:21)
[2019-06-20] MEDS: VANCOMYCIN 1 G PREMIX 200 ML IV SCH (06:02)
[2019-06-20] MEDS: MICAFUNGIN 100 MG in SODIUM CHLORIDE 0.9% 100 ML IV SCH (06:02)
[2019-06-20] MEDS: DEXT 5%/0.9% NACL 1,000 ML IV SCH (06:03)
[2019-06-20] MEDS: BLOOD SUGAR DIAGNOSTIC STRIP TEST SCH ×4 (06:03→18:00)
[2019-06-20 06:05] LABS: HEMATOCRIT. 32.1 % (36.0-48.0); HEMOGLOBIN. 9.9 g/dL (12.0-16.0); MEAN CORPUSCULAR HEMOGLOBIN 28.3 pg (28.0-32.0); MEAN CORPUSCULAR VOLUME 92.3 fL (81.0-99.0); PLATELET 130 x1000/uL (130-400); RED BLOOD CELL COUNT 3.48 mill/uL (4.2-5.4); RED CELL DISTRIBUTION WIDTH 17.8 % (11.6-14.6)
[2019-06-20 06:06] LABS: CHLORIDE 111 mEq/L (98-107)
[2019-06-20] MEDS: MIDODRINE HCL 5MG TABLET PO SCH ×3 (08:15→17:40)
[2019-06-20] MEDS: FLUDROCORTISONE ACETATE 0.1MG TABLET PO SCH (08:15)
[2019-06-20] MEDS: MAGNESIUM OXIDE 400MG TABLET PO SCH (08:15)
[2019-06-20] MEDS: THIAMINE HCL 100MG TABLET PO SCH ×2 (08:15→17:40)
[2019-06-20] MEDS: POTASSIUM CHLORIDE 20MEQ/PACKET NG SCH (08:15)
[2019-06-20] MEDS: ZINC SULFATE 220 MG ( 50 ) CAPSULE PO SCH (08:17)
[2019-06-20] MEDS: NOREPINEPHRINE 32 MG in DEXT 5% WATER 468 ML IV PRN ×2 (08:24→17:08)
[2019-06-20] MEDS ORDERED: LORAZEPAM 2MG/ML CPJ IV PRN (09:45)
[2019-06-20] MEDS ORDERED: FENTANYL CITRATE/PF 500 MCG in SODIUM CHLORIDE 0.9% 40 ML IV PRN (09:45)
[2019-06-20 09:58] LABS: BG BASE EXCESS -9.8 mmol/L (-2.0-2.0); BG CARBOXYHEMOGLOBIN 0.3 % (0.5-1.5); BG DEOXYHEMOGLOBIN 1.1 % (0.0-5.0); BG FRACTION INSPIRED OXYGEN 100; BG HCO3 ACT 14.5 mmol/L (22.0-26.0); BG METHEMOGLOBIN 0.3 % (0.0-1.5); BG OXYGEN SATURATION 98.9 % (92.0-98.5); BG OXYHEMOGLOBIN 98.3 % (94.0-97.0); BG PCO2 26.7 mmHg (35.0-45.0); BG PH 7.353 (7.350-7.450); BG PO2 145.7 mmHg (75.0-100.0); BG SAMPLE SITE RIGHT RADIAL; BG TIDAL VOLUME(mL) 450 mL; BG TOTAL HEMOGLOBIN 9.8 g/dL (12.0-18.0); BG VENT MODE VENT - A/C; BG VENT RATE 20 set
[2019-06-20] MEDS ORDERED: FENTANYL 1,000 MCG in SODIUM CHLORIDE 0.9% 100 ML IV PRN (10:15)
[2019-06-20 10:19] LABS: PLATELET ESTIMATE NORMAL
[2019-06-20] MEDS: CEFEPIME 1,000 MG in DEXTROSE 5% WATER 50 ML IV SCH (11:33)
[2019-06-20] MEDS: PHENYLEPHRINE 80 MG in DEXT 5% WATER 492 ML IV PRN (17:07)
[2019-06-20] MEDS: DIGOXIN 500MCG/2ML AMP IV SCH ×2 (17:41→18:00)
[2019-06-20] MEDS ORDERED: WATER IV SCH (21:00)
[2019-06-20] MEDS ORDERED: DEXTROSE 5% IV SCH (21:00)
[2019-06-20] MEDS ORDERED: VANCOMYCIN IV SCH (21:00)
[2019-06-21] VITALS (52 sets, daily range): BP systolic 37–155; BP diastolic 16–116
[2019-06-21] MEDS: BLOOD SUGAR DIAGNOSTIC STRIP TEST SCH ×4 (00:22→16:59)
[2019-06-21] MEDS: METOCLOPRAMIDE HCL 10MG/2ML VIAL IV SCH ×4 (00:23→16:58)
[2019-06-21] MEDS: VASOPRESSIN 10 UNIT in SODIUM CHLORIDE 0.9% 99.5 ML IV PRN ×2 (01:04→08:40)
[2019-06-21] MEDS: IPRATROPIUM BROMIDE (0.02%) 0.5MG/2.5ML NEB HHN SCH ×4 (01:16→20:49)
[2019-06-21] MEDS: MICAFUNGIN 100 MG in SODIUM CHLORIDE 0.9% 100 ML IV SCH (04:56)
[2019-06-21] MEDS: INSULIN LISPRO 100 UNITS/ML SUBCUT SCH ×4 (05:06→16:59)
[2019-06-21 06:56] LABS: HEMATOCRIT. 27.3 % (36.0-48.0); HEMOGLOBIN. 8.4 g/dL (12.0-16.0); MEAN CORPUSCULAR HEMOGLOBIN 28.4 pg (28.0-32.0); MEAN CORPUSCULAR VOLUME 92.4 fL (81.0-99.0); MEAN PLATELET VOLUME 9.4 fl (7.4-10.4); PLATELET 80 x1000/uL (130-400); RED BLOOD CELL COUNT 2.95 mill/uL (4.2-5.4); RED CELL DISTRIBUTION WIDTH 17.4 % (11.6-14.6)
[2019-06-21 07:10] LABS: CHLORIDE 108 mEq/L (98-107)
[2019-06-21] MEDS: MIDODRINE HCL 5MG TABLET PO SCH ×3 (08:40→16:59)
[2019-06-21] MEDS: POTASSIUM CHLORIDE 20MEQ/PACKET NG SCH (08:40)
[2019-06-21] MEDS: MAGNESIUM OXIDE 400MG TABLET PO SCH (08:41)
[2019-06-21] MEDS: ASCORBIC ACID 500 MG TABLET PO SCH ×2 (08:41→21:17)
[2019-06-21] MEDS: ZINC SULFATE 220 MG ( 50 ) CAPSULE PO SCH (08:42)
[2019-06-21] MEDS: THIAMINE HCL 100MG TABLET PO SCH ×2 (08:42→16:59)
[2019-06-21] MEDS: FLUDROCORTISONE ACETATE 0.1MG TABLET PO SCH (08:42)
[2019-06-21] MEDS: DEXT 5%/0.9% NACL 1,000 ML IV SCH (08:44)
[2019-06-21] MEDS: NOREPINEPHRINE 32 MG in DEXT 5% WATER 468 ML IV PRN (08:45)
[2019-06-21 08:58] LABS: PLATELET ESTIMATE DECREASED
[2019-06-21 11:11] LABS: BG BASE EXCESS -11.3 mmol/L (-2.0-2.0); BG CARBOXYHEMOGLOBIN 0.3 % (0.5-1.5); BG DEOXYHEMOGLOBIN 1.6 % (0.0-5.0); BG HCO3 ACT 13.4 mmol/L (22.0-26.0); BG METHEMOGLOBIN 0.1 % (0.0-1.5); BG OXYGEN SATURATION 98.4 % (92.0-98.5); BG PCO2 26.9 mmHg (35.0-45.0); BG PH 7.315 (7.350-7.450); BG PO2 127.2 mmHg (75.0-100.0); BG SAMPLE SITE RIGHT BRACHIAL; BG TIDAL VOLUME(mL) 450 mL; BG VENT MODE VENT - A/C; BG VENT RATE 20 set
[2019-06-21] MEDS: CEFEPIME 1,000 MG in DEXTROSE 5% WATER 50 ML IV SCH (13:16)
[2019-06-21] MEDS: PHENYLEPHRINE 80 MG in DEXT 5% WATER 492 ML IV PRN (22:50)
[2019-06-22] VITALS (72 sets, daily range): BP systolic 62–140; BP diastolic 25–98
[2019-06-22] MEDS: BLOOD SUGAR DIAGNOSTIC STRIP TEST SCH ×5 (00:23→23:57)
[2019-06-22] MEDS: METOCLOPRAMIDE HCL 10MG/2ML VIAL IV SCH ×5 (00:45→23:57)
[2019-06-22] MEDS: IPRATROPIUM BROMIDE (0.02%) 0.5MG/2.5ML NEB HHN SCH ×4 (02:09→20:57)
[2019-06-22] MEDS: MICAFUNGIN 100 MG in SODIUM CHLORIDE 0.9% 100 ML IV SCH (03:47)
[2019-06-22] MEDS: INSULIN LISPRO 100 UNITS/ML SUBCUT SCH ×5 (06:00→23:57)
[2019-06-22 06:35] LABS: BASOPHILS % 0.3 % (0.0-2.0); EOSINOPHILS % 5.2 % (0.0-5.0); HEMATOCRIT. 35.6 % (36.0-48.0); HEMOGLOBIN. 11.9 g/dL (12.0-16.0); LYMPHOCYTES % 34.5 % (20.0-50.0); MEAN CORPUSCULAR HEMOGLOBIN 30.7 pg (28.0-32.0); MEAN CORPUSCULAR VOLUME 91.8 fL (81.0-99.0); MEAN PLATELET VOLUME 10.4 fl (7.4-10.4); MONOCYTES % 10.5 % (2.0-8.0); NEUTROPHILS % 49.5 % (40.0-76.0); PLATELET 157 x1000/uL (130-400); RED BLOOD CELL COUNT 3.88 mill/uL (4.2-5.4); RED CELL DISTRIBUTION WIDTH 13.9 % (11.6-14.6)
[2019-06-22 06:41] LABS: CHLORIDE 107 mEq/L (98-107)
[2019-06-22 09:26] LABS: BG CARBOXYHEMOGLOBIN 0.3 % (0.5-1.5); BG DEOXYHEMOGLOBIN 1.1 % (0.0-5.0); BG FRACTION INSPIRED OXYGEN 60; BG HCO3 ACT 12.2 mmol/L (22.0-26.0); BG OXYGEN SATURATION 98.9 % (92.0-98.5); BG OXYHEMOGLOBIN 98.6 % (94.0-97.0); BG PCO2 20.5 mmHg (35.0-45.0); BG PH 7.394 (7.350-7.450); BG PO2 173.8 mmHg (75.0-100.0); BG SAMPLE SITE RIGHT BRACHIAL; BG TIDAL VOLUME(mL) 450 mL; BG TOTAL HEMOGLOBIN 9.3 g/dL (12.0-18.0); BG VENT MODE VENT - A/C; BG VENT RATE 20 set
[2019-06-22] MEDS: MIDODRINE HCL 5MG TABLET PO SCH ×3 (10:09→17:50)
[2019-06-22] MEDS: ZINC SULFATE 220 MG ( 50 ) CAPSULE PO SCH (10:09)
[2019-06-22] MEDS: FLUDROCORTISONE ACETATE 0.1MG TABLET PO SCH (10:09)
[2019-06-22] MEDS: POTASSIUM CHLORIDE 20MEQ/PACKET NG SCH (10:09)
[2019-06-22] MEDS: MAGNESIUM OXIDE 400MG TABLET PO SCH (10:10)
[2019-06-22] MEDS: ASCORBIC ACID 500 MG TABLET PO SCH ×2 (10:10→20:35)
[2019-06-22] MEDS: LOPERAMIDE HCL 2MG CAPSULE PO PRN (10:10)
[2019-06-22] MEDS: THIAMINE HCL 100MG TABLET PO SCH ×2 (10:10→17:49)
[2019-06-22] MEDS: PHENYLEPHRINE 80 MG in DEXT 5% WATER 492 ML IV PRN ×2 (12:00→21:47)
[2019-06-22] MEDS: NOREPINEPHRINE 32 MG in DEXT 5% WATER 468 ML IV PRN (12:00)
[2019-06-22] MEDS: DEXT 5%/0.9% NACL 1,000 ML IV SCH ×2 (12:33→17:44)
[2019-06-22] MEDS ORDERED: LEVOFLOXACIN 750MG PREMIX 150 ML IV NR (14:30)
[2019-06-22] MEDS: DIGOXIN 500MCG/2ML AMP IV SCH (17:49)
[2019-06-23] VITALS (94 sets, daily range): BP systolic 59–142; BP diastolic 35–86
[2019-06-23] MEDS: IPRATROPIUM BROMIDE (0.02%) 0.5MG/2.5ML NEB HHN SCH ×4 (02:46→20:59)
[2019-06-23] MEDS: MICAFUNGIN 100 MG in SODIUM CHLORIDE 0.9% 100 ML IV SCH (03:40)
[2019-06-23] MEDS: PHENYLEPHRINE 80 MG in DEXT 5% WATER 492 ML IV PRN ×3 (05:05→21:14)
[2019-06-23] MEDS: INSULIN LISPRO 100 UNITS/ML SUBCUT SCH ×3 (06:00→17:07)
[2019-06-23] MEDS: BLOOD SUGAR DIAGNOSTIC STRIP TEST SCH ×4 (06:02→23:23)
[2019-06-23] MEDS: METOCLOPRAMIDE HCL 10MG/2ML VIAL IV SCH ×4 (06:02→23:23)
[2019-06-23 06:57] LABS: CHLORIDE 108 mEq/L (98-107)
[2019-06-23 07:06] LABS: PHOSPHORUS 2.8 mg/dL (2.5-4.9)
[2019-06-23] MEDS: THIAMINE HCL 100MG TABLET PO SCH ×2 (08:43→17:14)
[2019-06-23] MEDS: POTASSIUM CHLORIDE 20MEQ/PACKET NG SCH (08:43)
[2019-06-23] MEDS: ZINC SULFATE 220 MG ( 50 ) CAPSULE PO SCH (08:44)
[2019-06-23] MEDS: MAGNESIUM OXIDE 400MG TABLET PO SCH (08:44)
[2019-06-23] MEDS: FLUDROCORTISONE ACETATE 0.1MG TABLET PO SCH (08:44)
[2019-06-23] MEDS: MIDODRINE HCL 5MG TABLET PO SCH ×3 (08:44→17:15)
[2019-06-23] MEDS: ASCORBIC ACID 500 MG TABLET PO SCH ×2 (08:44→21:07)
[2019-06-23] MEDS: DEXT 5%/0.9% NACL 1,000 ML IV SCH (10:16)
[2019-06-23 10:57] LABS: HEMATOCRIT. 29.2 % (36.0-48.0); HEMOGLOBIN. 9.1 g/dL (12.0-16.0); MEAN CORPUSCULAR HEMOGLOBIN 28.3 pg (28.0-32.0); MEAN CORPUSCULAR VOLUME 91.1 fL (81.0-99.0); MEAN PLATELET VOLUME 8.9 fl (7.4-10.4); RED BLOOD CELL COUNT 3.21 mill/uL (4.2-5.4); RED CELL DISTRIBUTION WIDTH 16.8 % (11.6-14.6)
[2019-06-23 11:45] LABS: NUCLEATED RED BLOOD CELLS 1 /100 WBC
[2019-06-23 11:46] LABS: PLATELET ESTIMATE MARKEDLY DECREASED
[2019-06-23 11:48] LABS: PLATELET 35 x1000/uL (130-400)
[2019-06-23 13:29] LABS: HEMATOCRIT. 30.1 % (36.0-48.0); HEMOGLOBIN. 9.3 g/dL (12.0-16.0); MEAN CORPUSCULAR HEMOGLOBIN 28.4 pg (28.0-32.0); MEAN CORPUSCULAR VOLUME 91.6 fL (81.0-99.0); MEAN PLATELET VOLUME 10.4 fl (7.4-10.4); RED BLOOD CELL COUNT 3.28 mill/uL (4.2-5.4); RED CELL DISTRIBUTION WIDTH 17.2 % (11.6-14.6)
[2019-06-23 13:31] LABS: PLATELET 42 x1000/uL (130-400)
[2019-06-23] MEDS ORDERED: CEFAZOLIN 1000MG PREMIX 50 ML IV SCH (13:50)
[2019-06-23] MEDS ORDERED: CEFAZOLIN 1000MG PREMIX 50 ML IV ONE (13:50)
[2019-06-23] MEDS ORDERED: MIDAZOLAM HCL 5 MG/5 ML VIAL ONE (13:51)
[2019-06-23] MEDS ORDERED: FENTANYL CITRATE/PF 50MCG/ML 2ML VIAL ONE (13:51)
[2019-06-23 14:40] LABS: PLATELET ESTIMATE MARKEDLY DECREASED
[2019-06-23] MEDS: DIGOXIN 500MCG/2ML AMP IV SCH (17:16)
[2019-06-24] VITALS (85 sets, daily range): BP systolic 72–139; BP diastolic 43–77
[2019-06-24] MEDS: IPRATROPIUM BROMIDE (0.02%) 0.5MG/2.5ML NEB HHN SCH ×4 (02:35→20:02)
[2019-06-24] MEDS: MICAFUNGIN 100 MG in SODIUM CHLORIDE 0.9% 100 ML IV SCH (04:01)
[2019-06-24] MEDS: METOCLOPRAMIDE HCL 10MG/2ML VIAL IV SCH ×3 (05:33→17:31)
[2019-06-24] MEDS: BLOOD SUGAR DIAGNOSTIC STRIP TEST SCH ×3 (05:55→17:31)
[2019-06-24] MEDS: INSULIN LISPRO 100 UNITS/ML SUBCUT SCH ×4 (05:55→17:31)
[2019-06-24 06:12] LABS: CHLORIDE 110 mEq/L (98-107)
[2019-06-24 06:55] LABS: HEMATOCRIT. 25.1 % (36.0-48.0); MEAN CORPUSCULAR HEMOGLOBIN 28.8 pg (28.0-32.0); MEAN CORPUSCULAR VOLUME 90.7 fL (81.0-99.0); MEAN PLATELET VOLUME 9.5 fl (7.4-10.4); PLATELET 105 x1000/uL (130-400); RED BLOOD CELL COUNT 2.77 mill/uL (4.2-5.4); RED CELL DISTRIBUTION WIDTH 17.1 % (11.6-14.6)
[2019-06-24 08:25] LABS: PLATELET ESTIMATE DECREASED
[2019-06-24] MEDS ORDERED: POTASSIUM CHLORIDE 20MEQ/PACKET PO NR (08:42)
[2019-06-24] MEDS: ZINC SULFATE 220 MG ( 50 ) CAPSULE PO SCH (08:51)
[2019-06-24] MEDS: MIDODRINE HCL 5MG TABLET PO SCH ×3 (08:51→17:31)
[2019-06-24] MEDS: MAGNESIUM OXIDE 400MG TABLET PO SCH (08:51)
[2019-06-24] MEDS: ASCORBIC ACID 500 MG TABLET PO SCH ×2 (08:51→21:05)
[2019-06-24] MEDS: FLUDROCORTISONE ACETATE 0.1MG TABLET PO SCH (08:51)
[2019-06-24] MEDS: THIAMINE HCL 100MG TABLET PO SCH ×2 (08:51→17:30)
[2019-06-24] MEDS: POTASSIUM CHLORIDE 20MEQ/PACKET NG SCH (08:52)
[2019-06-24 10:50] LABS: BG BASE EXCESS -9.8 mmol/L (-2.0-2.0); BG CARBOXYHEMOGLOBIN 0.1 % (0.5-1.5); BG DEOXYHEMOGLOBIN 1.4 % (0.0-5.0); BG FRACTION INSPIRED OXYGEN 40; BG HCO3 ACT 13.1 mmol/L (22.0-26.0); BG METHEMOGLOBIN 0.3 % (0.0-1.5); BG OXYGEN SATURATION 98.6 % (92.0-98.5); BG OXYHEMOGLOBIN 98.2 % (94.0-97.0); BG PCO2 20.4 mmHg (35.0-45.0); BG PH 7.427 (7.350-7.450); BG PO2 126.4 mmHg (75.0-100.0); BG SAMPLE SITE RIGHT BRACHIAL; BG TIDAL VOLUME(mL) 450 mL; BG TOTAL HEMOGLOBIN 8.5 g/dL (12.0-18.0); BG VENT MODE VENT - A/C; BG VENT RATE 20 set
[2019-06-24] MEDS: DEXT 5%/0.9% NACL 1,000 ML IV SCH (12:30)
[2019-06-24] MEDS: LEVOFLOXACIN 500MG PREMIX 100 ML IV SCH (15:26)
[2019-06-24] MEDS: DIGOXIN 500MCG/2ML AMP IV SCH (17:30)
[2019-06-24] MEDS: PHENYLEPHRINE 80 MG in DEXT 5% WATER 492 ML IV PRN (18:56)
[2019-06-25] VITALS (80 sets, daily range): BP systolic 51–131; BP diastolic 20–89
[2019-06-25] MEDS: METOCLOPRAMIDE HCL 10MG/2ML VIAL IV SCH ×5 (00:08→23:49)
[2019-06-25] MEDS: BLOOD SUGAR DIAGNOSTIC STRIP TEST SCH ×5 (00:08→23:49)
[2019-06-25] MEDS: IPRATROPIUM BROMIDE (0.02%) 0.5MG/2.5ML NEB HHN SCH ×4 (01:48→20:25)
[2019-06-25] MEDS: INSULIN LISPRO 100 UNITS/ML SUBCUT SCH ×4 (06:00→18:00)
[2019-06-25 06:16] LABS: HEMATOCRIT. 26.1 % (36.0-48.0); HEMOGLOBIN. 8.1 g/dL (12.0-16.0); MEAN CORPUSCULAR HEMOGLOBIN 28.4 pg (28.0-32.0); MEAN CORPUSCULAR VOLUME 91.5 fL (81.0-99.0); MEAN PLATELET VOLUME 9.9 fl (7.4-10.4); PLATELET 82 x1000/uL (130-400); RED BLOOD CELL COUNT 2.85 mill/uL (4.2-5.4); RED CELL DISTRIBUTION WIDTH 17.4 % (11.6-14.6)
[2019-06-25 06:27] LABS: CHLORIDE 114 mEq/L (98-107)
[2019-06-25] MEDS: DEXT 5%/0.9% NACL 1,000 ML IV SCH (08:07)
[2019-06-25] MEDS: MICAFUNGIN 100 MG in SODIUM CHLORIDE 0.9% 100 ML IV SCH (08:08)
[2019-06-25] MEDS: POTASSIUM CHLORIDE 20MEQ/PACKET NG SCH (08:09)
[2019-06-25] MEDS: MIDODRINE HCL 5MG TABLET PO SCH ×3 (08:10→18:39)
[2019-06-25] MEDS: ASCORBIC ACID 500 MG TABLET PO SCH ×2 (08:10→20:40)
[2019-06-25] MEDS: MAGNESIUM OXIDE 400MG TABLET PO SCH (08:10)
[2019-06-25] MEDS: MULTIVITAMINS,THER W-MINERALS TABLET PO SCH (08:11)
[2019-06-25] MEDS: THIAMINE HCL 100MG TABLET PO SCH ×2 (08:11→18:39)
[2019-06-25] MEDS: ZINC SULFATE 220 MG ( 50 ) CAPSULE PO SCH (08:11)
[2019-06-25] MEDS: FLUDROCORTISONE ACETATE 0.1MG TABLET PO SCH (08:12)
[2019-06-25] MEDS: NOREPINEPHRINE 32 MG in DEXT 5% WATER 468 ML IV PRN (08:14)
[2019-06-25 13:44] LABS: PLATELET ESTIMATE DECREASED
[2019-06-26] VITALS (59 sets, daily range): BP systolic 86–145; BP diastolic 48–110
[2019-06-26] MEDS: PHENYLEPHRINE 80 MG in DEXT 5% WATER 492 ML IV PRN (03:58)
[2019-06-26] MEDS: METOCLOPRAMIDE HCL 10MG/2ML VIAL IV SCH ×4 (05:49→23:16)
[2019-06-26] MEDS: BLOOD SUGAR DIAGNOSTIC STRIP TEST SCH ×4 (05:49→23:16)
[2019-06-26] MEDS: INSULIN LISPRO 100 UNITS/ML SUBCUT SCH ×5 (06:00→23:54)
[2019-06-26 06:01] LABS: HEMATOCRIT. 29.2 % (36.0-48.0); HEMOGLOBIN. 9.1 g/dL (12.0-16.0); MEAN CORPUSCULAR HEMOGLOBIN 28.6 pg (28.0-32.0); MEAN CORPUSCULAR VOLUME 92.1 fL (81.0-99.0); MEAN PLATELET VOLUME 9.5 fl (7.4-10.4); RED BLOOD CELL COUNT 3.18 mill/uL (4.2-5.4); RED CELL DISTRIBUTION WIDTH 17.4 % (11.6-14.6)
[2019-06-26 06:15] LABS: CHLORIDE 111 mEq/L (98-107)
[2019-06-26 06:17] LABS: PLATELET 44 x1000/uL (130-400)
[2019-06-26] MEDS: MULTIVITAMINS,THER W-MINERALS TABLET PO SCH (08:35)
[2019-06-26] MEDS: ZINC SULFATE 220 MG ( 50 ) CAPSULE PO SCH (08:35)
[2019-06-26] MEDS: FLUDROCORTISONE ACETATE 0.1MG TABLET PO SCH (08:35)
[2019-06-26] MEDS: MAGNESIUM OXIDE 400MG TABLET PO SCH (08:35)
[2019-06-26] MEDS: POTASSIUM CHLORIDE 20MEQ/PACKET NG SCH (08:35)
[2019-06-26] MEDS: ASCORBIC ACID 500 MG TABLET PO SCH ×2 (08:35→21:20)
[2019-06-26] MEDS: THIAMINE HCL 100MG TABLET PO SCH ×2 (08:36→17:11)
[2019-06-26] MEDS: MICAFUNGIN 100 MG in SODIUM CHLORIDE 0.9% 100 ML IV SCH (08:36)
[2019-06-26] MEDS: MIDODRINE HCL 5MG TABLET PO SCH ×3 (08:36→16:55)
[2019-06-26] MEDS: IPRATROPIUM BROMIDE (0.02%) 0.5MG/2.5ML NEB HHN SCH ×3 (09:11→20:20)
[2019-06-26 09:38] LABS: PLATELET ESTIMATE MARKEDLY DECREASED
[2019-06-26] MEDS: LEVOFLOXACIN 500MG PREMIX 100 ML IV SCH (14:35)
[2019-06-27] VITALS (97 sets, daily range): BP systolic 63–164; BP diastolic 32–115
[2019-06-27] MEDS: IPRATROPIUM BROMIDE (0.02%) 0.5MG/2.5ML NEB HHN SCH ×5 (01:47→20:45)
[2019-06-27] MEDS: METOCLOPRAMIDE HCL 10MG/2ML VIAL IV SCH ×4 (05:21→23:25)
[2019-06-27] MEDS: BLOOD SUGAR DIAGNOSTIC STRIP TEST SCH ×3 (05:21→17:35)
[2019-06-27] MEDS: INSULIN LISPRO 100 UNITS/ML SUBCUT SCH ×3 (05:42→17:35)
[2019-06-27 05:54] LABS: HEMATOCRIT. 25.3 % (36.0-48.0); HEMOGLOBIN. 7.8 g/dL (12.0-16.0); MEAN CORPUSCULAR HEMOGLOBIN 28.5 pg (28.0-32.0); MEAN CORPUSCULAR VOLUME 92.1 fL (81.0-99.0); MEAN PLATELET VOLUME 10.3 fl (7.4-10.4); RED BLOOD CELL COUNT 2.75 mill/uL (4.2-5.4); RED CELL DISTRIBUTION WIDTH 17.3 % (11.6-14.6)
[2019-06-27 06:04] LABS: CHLORIDE 110 mEq/L (98-107)
[2019-06-27 06:14] LABS: PLATELET 29 x1000/uL (130-400)
[2019-06-27] MEDS: MICAFUNGIN 100 MG in SODIUM CHLORIDE 0.9% 100 ML IV SCH (09:08)
[2019-06-27] MEDS: THIAMINE HCL 100MG TABLET PO SCH ×2 (09:09→17:36)
[2019-06-27] MEDS: MULTIVITAMINS,THER W-MINERALS TABLET PO SCH (09:09)
[2019-06-27] MEDS: POTASSIUM CHLORIDE 20MEQ/PACKET NG SCH (09:09)
[2019-06-27] MEDS: MIDODRINE HCL 5MG TABLET PO SCH ×3 (09:09→17:36)
[2019-06-27] MEDS: MAGNESIUM OXIDE 400MG TABLET PO SCH (09:09)
[2019-06-27] MEDS: ZINC SULFATE 220 MG ( 50 ) CAPSULE PO SCH (09:09)
[2019-06-27] MEDS: ASCORBIC ACID 500 MG TABLET PO SCH ×2 (09:09→20:26)
[2019-06-27] MEDS: FLUDROCORTISONE ACETATE 0.1MG TABLET PO SCH (09:09)
[2019-06-27 09:19] LABS: BG BASE EXCESS -10.4 mmol/L (-2.0-2.0); BG CARBOXYHEMOGLOBIN 0.2 % (0.5-1.5); BG DEOXYHEMOGLOBIN 1.1 % (0.0-5.0); BG FRACTION INSPIRED OXYGEN 35; BG HCO3 ACT 12.3 mmol/L (22.0-26.0); BG METHEMOGLOBIN 0.3 % (0.0-1.5); BG OXYGEN SATURATION 98.9 % (92.0-98.5); BG OXYHEMOGLOBIN 98.4 % (94.0-97.0); BG PCO2 18.9 mmHg (35.0-45.0); BG PH 7.433 (7.350-7.450); BG PO2 147.1 mmHg (75.0-100.0); BG SAMPLE SITE RIGHT RADIAL; BG TIDAL VOLUME(mL) 450 mL; BG TOTAL HEMOGLOBIN 8.5 g/dL (12.0-18.0); BG VENT MODE VENT - A/C; BG VENT RATE 16 set
[2019-06-27] MEDS: PHENYLEPHRINE 80 MG in DEXT 5% WATER 492 ML IV PRN (11:38)
[2019-06-27 17:02] LABS: PLATELET ESTIMATE MARKEDLY DECREASED
[2019-06-27] MEDS: DEXTROSE 50% WATER 50ML SYRINGE IV PRN (23:26)
[2019-06-28] VITALS (103 sets, daily range): BP systolic 58–127; BP diastolic 36–85
[2019-06-28] MEDS: IPRATROPIUM BROMIDE (0.02%) 0.5MG/2.5ML NEB HHN SCH ×5 (00:41→20:55)
[2019-06-28] MEDS: METOCLOPRAMIDE HCL 10MG/2ML VIAL IV SCH ×2 (05:34→11:38)
[2019-06-28] MEDS: PHENYLEPHRINE 80 MG in DEXT 5% WATER 492 ML IV PRN (05:34)
[2019-06-28] MEDS: BLOOD SUGAR DIAGNOSTIC STRIP TEST SCH ×5 (05:34→23:30)
[2019-06-28] MEDS: INSULIN LISPRO 100 UNITS/ML SUBCUT SCH ×5 (06:00→23:30)
[2019-06-28 06:41] LABS: HEMATOCRIT. 24.6 % (36.0-48.0); HEMOGLOBIN. 7.8 g/dL (12.0-16.0); MEAN CORPUSCULAR HEMOGLOBIN 28.9 pg (28.0-32.0); MEAN CORPUSCULAR VOLUME 90.8 fL (81.0-99.0); MEAN PLATELET VOLUME 10.7 fl (7.4-10.4)
[2019-06-28 06:58] LABS: CHLORIDE 110 mEq/L (98-107)
[2019-06-28] MEDS: POTASSIUM CHLORIDE 20MEQ/PACKET NG SCH (09:25)
[2019-06-28] MEDS: ZINC SULFATE 220 MG ( 50 ) CAPSULE PO SCH (09:26)
[2019-06-28] MEDS: THIAMINE HCL 100MG TABLET PO SCH (09:26)
[2019-06-28] MEDS: MAGNESIUM OXIDE 400MG TABLET PO SCH (09:26)
[2019-06-28] MEDS: ASCORBIC ACID 500 MG TABLET PO SCH (09:26)
[2019-06-28] MEDS: FLUDROCORTISONE ACETATE 0.1MG TABLET PO SCH (09:26)
[2019-06-28] MEDS: MULTIVITAMINS,THER W-MINERALS TABLET PO SCH (09:26)
[2019-06-28] MEDS: MIDODRINE HCL 5MG TABLET PO SCH ×3 (09:26→17:32)
[2019-06-28] MEDS: MICAFUNGIN 100 MG in SODIUM CHLORIDE 0.9% 100 ML IV SCH (10:06)
[2019-06-28 13:30] LABS: PLATELET ESTIMATE MARKEDLY DECREASED
[2019-06-28] MEDS ORDERED: METOCLOPRAMIDE HCL 10MG/2ML VIAL IV PRN (13:30)
[2019-06-28 13:32] LABS: PLATELET 36 x1000/uL (130-400)
[2019-06-28] MEDS: LACTOBACILLUS GG CAPSULE PO SCH (14:13)
[2019-06-28] MEDS: DEXTROSE 50% WATER 50ML SYRINGE IV PRN (23:31)
[2019-06-29] VITALS (117 sets, daily range): BP systolic -19–175; BP diastolic -19–106
[2019-06-29] MEDS: PHENYLEPHRINE 80 MG in DEXT 5% WATER 492 ML IV PRN ×3 (00:07→15:40)
[2019-06-29] MEDS: IPRATROPIUM BROMIDE (0.02%) 0.5MG/2.5ML NEB HHN SCH ×4 (01:30→20:19)
[2019-06-29] MEDS: NOREPINEPHRINE 32 MG in DEXT 5% WATER 468 ML IV PRN (04:47)
[2019-06-29] MEDS: INSULIN LISPRO 100 UNITS/ML SUBCUT SCH ×4 (05:14→23:38)
[2019-06-29] MEDS: BLOOD SUGAR DIAGNOSTIC STRIP TEST SCH ×4 (05:15→23:38)
[2019-06-29 06:04] LABS: CHLORIDE 108 mEq/L (98-107)
[2019-06-29] MEDS: LACTOBACILLUS GG CAPSULE PO SCH (08:54)
[2019-06-29] MEDS: MULTIVITAMINS,THER W-MINERALS TABLET PO SCH (08:54)
[2019-06-29] MEDS: POTASSIUM CHLORIDE 20MEQ/PACKET NG SCH (08:54)
[2019-06-29] MEDS: MICAFUNGIN 100 MG in SODIUM CHLORIDE 0.9% 100 ML IV SCH (08:54)
[2019-06-29] MEDS: MIDODRINE HCL 5MG TABLET PO SCH ×3 (08:54→17:25)
[2019-06-29] MEDS: FLUDROCORTISONE ACETATE 0.1MG TABLET PO SCH (08:54)
[2019-06-29] MEDS: MAGNESIUM OXIDE 400MG TABLET PO SCH (08:54)
[2019-06-29 09:03] LABS: HEMATOCRIT. 22.8 % (36.0-48.0); MEAN CORPUSCULAR HEMOGLOBIN 28.6 pg (28.0-32.0); MEAN CORPUSCULAR VOLUME 96.6 fL (81.0-99.0); MEAN PLATELET VOLUME 11.5 fl (7.4-10.4); RED BLOOD CELL COUNT 2.36 mill/uL (4.2-5.4); RED CELL DISTRIBUTION WIDTH 18.4 % (11.6-14.6)
[2019-06-29 09:31] LABS: HEMOGLOBIN. 6.8 g/dL (12.0-16.0); PLATELET 30 x1000/uL (130-400)
[2019-06-29 11:05] LABS: NUCLEATED RED BLOOD CELLS 1 /100 WBC; PLATELET ESTIMATE MARKEDLY DECREASED
[2019-06-29] MEDS ORDERED: DOPAMINE IV PRN (13:55)
[2019-06-29] MEDS ORDERED: DOPAMINE HCL IV PRN (13:55)
[2019-06-29] MEDS ORDERED: DOPAMINE HCL 800 MG in DEXT 5% WATER 230 ML IV PRN (14:15)
[2019-06-29] MEDS: VASOPRESSIN 10 UNIT in SODIUM CHLORIDE 0.9% 99.5 ML IV PRN (14:57)
[2019-06-29] MEDS ORDERED: SODIUM CHLORIDE 0.9% 250 ML IV ONE (15:50)
[2019-06-30] VITALS (96 sets, daily range): BP systolic 62–159; BP diastolic 40–112
[2019-06-30] MEDS: PHENYLEPHRINE 80 MG in DEXT 5% WATER 492 ML IV PRN ×5 (00:01→23:33)
[2019-06-30] MEDS: IPRATROPIUM BROMIDE (0.02%) 0.5MG/2.5ML NEB HHN SCH ×4 (00:18→20:40)
[2019-06-30 06:25] LABS: HEMATOCRIT. 30.9 % (36.0-48.0); HEMOGLOBIN. 10.2 g/dL (12.0-16.0); MEAN CORPUSCULAR HEMOGLOBIN 29.7 pg (28.0-32.0); MEAN CORPUSCULAR VOLUME 90.3 fL (81.0-99.0); MEAN PLATELET VOLUME 10.5 fl (7.4-10.4); RED BLOOD CELL COUNT 3.42 mill/uL (4.2-5.4); RED CELL DISTRIBUTION WIDTH 16.8 % (11.6-14.6)
[2019-06-30 06:34] LABS: CHLORIDE 103 mEq/L (98-107)
[2019-06-30] MEDS: MAGNESIUM OXIDE 400MG TABLET PO SCH (08:45)
[2019-06-30] MEDS: FLUDROCORTISONE ACETATE 0.1MG TABLET PO SCH (08:45)
[2019-06-30] MEDS: POTASSIUM CHLORIDE 20MEQ/PACKET NG SCH (08:45)
[2019-06-30] MEDS: MULTIVITAMINS,THER W-MINERALS TABLET PO SCH (08:45)
[2019-06-30] MEDS: LACTOBACILLUS GG CAPSULE PO SCH (08:45)
[2019-06-30] MEDS: MIDODRINE HCL 5MG TABLET PO SCH ×3 (08:45→18:02)
[2019-06-30 08:47] LABS: PLATELET ESTIMATE MARKEDLY DECREASED
[2019-06-30] MEDS: MICAFUNGIN 100 MG in SODIUM CHLORIDE 0.9% 100 ML IV SCH (08:53)
[2019-06-30 08:54] LABS: PLATELET 50 x1000/uL (130-400)
[2019-06-30] MEDS: NOREPINEPHRINE 32 MG in DEXT 5% WATER 468 ML IV PRN (08:54)
[2019-06-30] MEDS ORDERED: MORPHINE SULFATE 2 MG/ML CPJ (NOT FOR IM USE) IV PRN (10:15)
[2019-06-30] MEDS: INSULIN LISPRO 100 UNITS/ML SUBCUT SCH ×3 (11:54→23:44)
[2019-06-30] MEDS: BLOOD SUGAR DIAGNOSTIC STRIP TEST SCH ×3 (11:54→23:43)
[2019-06-30] MEDS: METOCLOPRAMIDE HCL 10MG/2ML VIAL IV SCH ×3 (12:07→21:17)
[2019-06-30 17:36] LABS: CLARITY URINE CLEAR (CLEAR); COLOR URINE YELLOW (YELLOW); KETONES URINE NEGATIVE (NEGATIVE); LEUKOCYTE ESTERASE URINE 1+ (NEGATIVE); NITRITE URINE NEGATIVE (NEGATIVE); OCCULT BLOOD URINE 2+ (NEGATIVE); PROTEIN URINE 1+ (NEGATIVE); SPECIFIC GRAVITY URINE 1.011 (1.005-1.030); UROBILINOGEN URINE 0.2 E.U./dL (0.2-1.0)
[2019-06-30] MEDS: VORICONAZOLE 200MG TABLET PO SCH (18:02)
[2019-06-30] MEDS: VASOPRESSIN 10 UNIT in SODIUM CHLORIDE 0.9% 99.5 ML IV PRN ×2 (19:57→21:18)
[2019-06-30] MEDS: DEXTROSE 50% WATER 50ML SYRINGE IV PRN (23:34)
[2019-07-01] VITALS (97 sets, daily range): BP systolic 54–136; BP diastolic 26–96
[2019-07-01] MEDS: IPRATROPIUM BROMIDE (0.02%) 0.5MG/2.5ML NEB HHN SCH ×3 (01:33→20:52)
[2019-07-01] MEDS: DEXTROSE 50% WATER 50ML SYRINGE IV PRN (05:21)
[2019-07-01] MEDS: BLOOD SUGAR DIAGNOSTIC STRIP TEST SCH ×4 (05:25→23:41)
[2019-07-01] MEDS: METOCLOPRAMIDE HCL 10MG/2ML VIAL IV SCH ×3 (05:25→17:29)
[2019-07-01] MEDS: INSULIN LISPRO 100 UNITS/ML SUBCUT SCH ×4 (05:26→23:57)
[2019-07-01 05:31] LABS: HEMATOCRIT. 36.5 % (36.0-48.0); HEMOGLOBIN. 11.7 g/dL (12.0-16.0); MEAN CORPUSCULAR HEMOGLOBIN 29.5 pg (28.0-32.0); MEAN CORPUSCULAR VOLUME 92.2 fL (81.0-99.0); MEAN PLATELET VOLUME 11.4 fl (7.4-10.4); RED BLOOD CELL COUNT 3.96 mill/uL (4.2-5.4); RED CELL DISTRIBUTION WIDTH 17.7 % (11.6-14.6)
[2019-07-01 05:36] LABS: CHLORIDE 100 mEq/L (98-107)
[2019-07-01 06:39] LABS: PLATELET 43 x1000/uL (130-400)
[2019-07-01] MEDS: PHENYLEPHRINE 80 MG in DEXT 5% WATER 492 ML IV PRN ×3 (07:22→22:56)
[2019-07-01] MEDS: VASOPRESSIN 10 UNIT in SODIUM CHLORIDE 0.9% 99.5 ML IV PRN ×2 (07:32→12:25)
[2019-07-01] MEDS ORDERED: DEXT 5%/0.9% NACL KCL 20MEQ/L 1,000 ML IV SCH (08:00)
[2019-07-01] MEDS: FLUDROCORTISONE ACETATE 0.1MG TABLET PO SCH (08:53)
[2019-07-01] MEDS: VORICONAZOLE 200MG TABLET PO SCH ×2 (08:53→20:25)
[2019-07-01] MEDS: NOREPINEPHRINE 32 MG in DEXT 5% WATER 468 ML IV PRN (08:53)
[2019-07-01] MEDS: MAGNESIUM OXIDE 400MG TABLET PO SCH (08:54)
[2019-07-01] MEDS: MULTIVITAMINS,THER W-MINERALS TABLET PO SCH (08:54)
[2019-07-01] MEDS: POTASSIUM CHLORIDE 20MEQ/PACKET NG SCH (08:54)
[2019-07-01] MEDS: MIDODRINE HCL 5MG TABLET PO SCH ×3 (08:54→17:29)
[2019-07-01] MEDS: LACTOBACILLUS GG CAPSULE PO SCH (08:54)
[2019-07-01] MEDS ORDERED: MICAFUNGIN 100 MG in SODIUM CHLORIDE 0.9% 100 ML IV SCH (09:00)
[2019-07-01 09:55] LABS: PLATELET ESTIMATE MARKEDLY DECREASED
[2019-07-01 10:41] LABS: BG BASE EXCESS -11.2 mmol/L (-2.0-2.0); BG FRACTION INSPIRED OXYGEN 30; BG HCO3 ACT 11.2 mmol/L (22.0-26.0); BG PCO2 19.3 mmHg (35.0-45.0); BG PO2 88.8 mmHg (75.0-100.0); BG SAMPLE SITE RIGHT BRACHIAL; BG TIDAL VOLUME(mL) 450 mL; BG VENT MODE VENT - A/C; BG VENT RATE 16 set
[2019-07-01] MEDS: SODIUM CHLORIDE 0.9% 1,000 ML IV SCH (11:50)
[2019-07-01] MEDS: NYSTATIN POWDER 15GM TOP SCH (20:25)
[2019-07-02] VITALS (94 sets, daily range): BP systolic 74–104; BP diastolic 14–70
[2019-07-02] MEDS: METOCLOPRAMIDE HCL 10MG/2ML VIAL IV SCH ×5 (00:02→23:17)
[2019-07-02] MEDS: IPRATROPIUM BROMIDE (0.02%) 0.5MG/2.5ML NEB HHN SCH ×4 (01:38→20:36)
[2019-07-02] MEDS: BLOOD SUGAR DIAGNOSTIC STRIP TEST SCH ×4 (05:35→23:17)
[2019-07-02] MEDS: INSULIN LISPRO 100 UNITS/ML SUBCUT SCH ×4 (06:00→23:17)
[2019-07-02] MEDS: SODIUM CHLORIDE 0.9% 1,000 ML IV SCH (06:16)
[2019-07-02] MEDS: PHENYLEPHRINE 80 MG in DEXT 5% WATER 492 ML IV PRN ×3 (07:36→22:50)
[2019-07-02] MEDS: VORICONAZOLE 200MG TABLET PO SCH ×2 (08:45→20:11)
[2019-07-02] MEDS: LACTOBACILLUS GG CAPSULE PO SCH (08:45)
[2019-07-02] MEDS: MAGNESIUM OXIDE 400MG TABLET PO SCH ×2 (08:45→11:09)
[2019-07-02] MEDS: FLUDROCORTISONE ACETATE 0.1MG TABLET PO SCH (08:45)
[2019-07-02] MEDS: NYSTATIN POWDER 15GM TOP SCH ×2 (08:45→20:11)
[2019-07-02] MEDS: MULTIVITAMINS,THER W-MINERALS TABLET PO SCH (08:45)
[2019-07-02] MEDS: MIDODRINE HCL 5MG TABLET PO SCH ×3 (08:46→17:13)
[2019-07-02 10:53] LABS: HEMATOCRIT. 25.8 % (36.0-48.0); MEAN CORPUSCULAR HEMOGLOBIN 28.9 pg (28.0-32.0); MEAN CORPUSCULAR VOLUME 89.2 fL (81.0-99.0); MEAN PLATELET VOLUME 9.7 fl (7.4-10.4); RED BLOOD CELL COUNT 2.89 mill/uL (4.2-5.4); RED CELL DISTRIBUTION WIDTH 16.7 % (11.6-14.6)
[2019-07-02 10:58] LABS: HEMOGLOBIN. 8.4 g/dL (12.0-16.0); PLATELET 43 x1000/uL (130-400)
[2019-07-02 11:00] LABS: CHLORIDE 99 mEq/L (98-107)
[2019-07-02 11:06] LABS: PHOSPHORUS 3.2 mg/dL (2.5-4.9)
[2019-07-02] MEDS: POTASSIUM CHLORIDE 20MEQ/PACKET NG SCH (11:09)
[2019-07-02] MEDS ORDERED: MAGNESIUM 4 G PREMIX 100 ML IV NR (13:00)
[2019-07-02 13:26] LABS: NUCLEATED RED BLOOD CELLS 1 /100 WBC
[2019-07-02 13:27] LABS: PLATELET ESTIMATE DECREASED
[2019-07-02] MEDS: NOREPINEPHRINE 32 MG in DEXT 5% WATER 468 ML IV PRN (15:40)
[2019-07-02] MEDS: CEFEPIME 1,000 MG in DEXTROSE 5% WATER 50 ML IV SCH (23:17)
[2019-07-03] VITALS (95 sets, daily range): BP systolic 66–114; BP diastolic 38–65
[2019-07-03] MEDS: IPRATROPIUM BROMIDE (0.02%) 0.5MG/2.5ML NEB HHN SCH ×4 (00:37→14:36)
[2019-07-03] MEDS: SODIUM CHLORIDE 0.9% 1,000 ML IV SCH ×2 (03:38→23:33)
[2019-07-03] MEDS: INSULIN LISPRO 100 UNITS/ML SUBCUT SCH ×4 (05:41→23:34)
[2019-07-03] MEDS: BLOOD SUGAR DIAGNOSTIC STRIP TEST SCH ×4 (05:41→23:34)
[2019-07-03] MEDS: METOCLOPRAMIDE HCL 10MG/2ML VIAL IV SCH ×4 (06:06→23:33)
[2019-07-03 06:12] LABS: CHLORIDE 100 mEq/L (98-107); HEMATOCRIT. 26.8 % (36.0-48.0); HEMOGLOBIN. 8.8 g/dL (12.0-16.0); MEAN CORPUSCULAR HEMOGLOBIN 29.4 pg (28.0-32.0); MEAN CORPUSCULAR VOLUME 89.2 fL (81.0-99.0); MEAN PLATELET VOLUME 10.5 fl (7.4-10.4); RED BLOOD CELL COUNT 3.01 mill/uL (4.2-5.4); RED CELL DISTRIBUTION WIDTH 16.7 % (11.6-14.6)
[2019-07-03 06:18] LABS: PLATELET 47 x1000/uL (130-400)
[2019-07-03] MEDS: PHENYLEPHRINE 80 MG in DEXT 5% WATER 492 ML IV PRN ×3 (06:37→21:22)
[2019-07-03 08:31] LABS: PLATELET ESTIMATE DECREASED
[2019-07-03] MEDS: MULTIVITAMINS,THER W-MINERALS TABLET PO SCH (08:32)
[2019-07-03] MEDS: LACTOBACILLUS GG CAPSULE PO SCH (08:32)
[2019-07-03] MEDS: FLUDROCORTISONE ACETATE 0.1MG TABLET PO SCH (08:32)
[2019-07-03] MEDS: POTASSIUM CHLORIDE 20MEQ/PACKET NG SCH (08:32)
[2019-07-03] MEDS: VORICONAZOLE 200MG TABLET PO SCH ×2 (08:32→20:48)
[2019-07-03] MEDS: MAGNESIUM OXIDE 400MG TABLET PO SCH (08:32)
[2019-07-03] MEDS: MIDODRINE HCL 5MG TABLET PO SCH ×3 (08:33→17:15)
[2019-07-03] MEDS: NYSTATIN POWDER 15GM TOP SCH ×2 (08:34→20:49)
[2019-07-03] MEDS: CEFEPIME 1,000 MG in DEXTROSE 5% WATER 50 ML IV SCH ×2 (11:33→23:33)
[2019-07-03] MEDS: VASOPRESSIN 10 UNIT in SODIUM CHLORIDE 0.9% 99.5 ML IV PRN (23:49)
[2019-07-04] VITALS (9 sets, daily range): BP systolic 51–88; BP diastolic 33–66
[2019-07-04] MEDS ORDERED: DOPAMINE 800MG PREMIX (DOUBLE) 250 ML IV PRN (00:15)
[2019-07-04] MEDS ORDERED: WATER IV PRN (01:00)
[2019-07-04] MEDS ORDERED: DOPAMINE HCL IV PRN (01:00)
[2019-07-04] MEDS ORDERED: DEXT 5% IV PRN (01:00)
[2019-07-04] MEDS ORDERED: DOPAMINE HCL 800 MG in DEXT 5% WATER 240 ML IV PRN (01:00)
[2019-07-04] MEDS: NOREPINEPHRINE 32 MG in DEXT 5% WATER 468 ML IV PRN (01:22)
== END 2019-07-04 03:00 | disposition expired | DRG 3 ==
LOC: ER 13:04 → EDBEDREQSVC 19:50 → EDBEDREQ 19:50 → EDBEDREQTM 19:50 → EDBEDREQSVC 06-01 09:29 → EDBEDREQ 06-01 09:29 → EDBEDREQTM 06-01 14:23 → EDBEDREQSVC 06-01 14:23 → CVICU 06-01 17:26 → ENRESERV 06-01 21:15 → CVICU 06-16 09:52
PROVIDERS: ADMIT Internal Medicine; ATTEND Internal Medicine
PROC: 5A1955Z Respiratory Ventilation, Greater than 96 Consecutive Hours (ICD-10-PCS; principal; 2019-06-01)
PROC: 0BH18EZ Insertion of Endotracheal Airway into Trachea, Via Natural or Artificial Opening Endoscopic (ICD-10-PCS; 2019-06-01)
PROC: 02HV33Z Insertion of Infusion Device into Superior Vena Cava, Percutaneous Approach (ICD-10-PCS; 2019-06-07)
PROC: 30233N1 Transfusion of Nonautologous Red Blood Cells into Peripheral Vein, Percutaneous Approach (ICD-10-PCS; 2019-06-10)
PROC: 0B110F4 Bypass Trachea to Cutaneous with Tracheostomy Device, Open Approach (ICD-10-PCS; 2019-06-22)
PROC: 0GBJ0ZZ Excision of Thyroid Gland Isthmus, Open Approach (ICD-10-PCS; 2019-06-22)
PROC: 0DH63UZ Insertion of Feeding Device into Stomach, Percutaneous Approach (ICD-10-PCS; 2019-06-23)
PROC: 30233K1 Transfusion of Nonautologous Frozen Plasma into Peripheral Vein, Percutaneous Approach (ICD-10-PCS; 2019-06-23)
DX: A41.9 Sepsis, unspecified organism (principal); R65.21 Severe sepsis with septic shock; E43 Unspecified severe protein-calorie malnutrition; J96.00 Acute respiratory failure, unspecified whether with hypoxia or hypercapnia; G92 Toxic encephalopathy; J69.0 Pneumonitis due to inhalation of food and vomit; E87.1 Hypo-osmolality and hyponatremia; C34.90 Malignant neoplasm of unspecified part of unspecified bronchus or lung; C78.00 Secondary malignant neoplasm of unspecified lung; E87.2 Acidosis; I50.22 Chronic systolic (congestive) heart failure; I96 Gangrene, not elsewhere classified; E83.42 Hypomagnesemia; E87.8 Other disorders of electrolyte and fluid balance, not elsewhere classified; E87.6 Hypokalemia; D64.9 Anemia, unspecified; C50.919 Malignant neoplasm of unspecified site of unspecified female breast; R13.10 Dysphagia, unspecified; E83.39 Other disorders of phosphorus metabolism; K80.20 Calculus of gallbladder without cholecystitis without obstruction; I27.20 Pulmonary hypertension, unspecified; D72.810 Lymphocytopenia; D75.89 Other specified diseases of blood and blood-forming organs; I11.0 Hypertensive heart disease with heart failure; J44.9 Chronic obstructive pulmonary disease, unspecified; K29.40 Chronic atrophic gastritis without bleeding; K31.9 Disease of stomach and duodenum, unspecified; I99.8 Other disorder of circulatory system; Z20.828 Contact with and (suspected) exposure to other viral communicable diseases; R13.12 Dysphagia, oropharyngeal phase; Z68.20 Body mass index [BMI] 20.0-20.9, adult; Z79.899 Other long term (current) drug therapy; Z03.818 Encounter for observation for suspected exposure to other biological agents ruled out; S80.829A Blister (nonthermal), unspecified lower leg, initial encounter; Z93.1 Gastrostomy status; R62.7 Adult failure to thrive
CPT/HCPCS: 36415; 36556; 36600; 71045; 74018; 74176; 76700; 76937; 78580; 80048; 80053; 80076; 80162; 80202; 81003; 82140; 82270; 82375; 82607; 82746; 82805; 82947; 82962; 83036; 83605; 83735; 83880; 84100; 84132; 84145; 84439; 84443; 84478; 84481; 84484; 85025; 85027; 85379; 86850; 86900; 86920; 87015; 87045; 87070; 87077; 87106; 87107; 87186; 87420; 87427; 87449; 87635; 87804; 89055; 92610; 93005; 93306; 93970; 94003; 94640; 94660; 99291; C1725; C9113; J0330; J0690; J0692; J1160; J1265; J1650; J1815; J1956; J2060; J2185; J2248; J2250; J2270; J2370; J2543; J2704; J2765; J3010; J3370; J3475; J3480; J3490; J7030; J7040; J7042; J7050; J7060; J7070; P9016; P9034; P9041; U0003-CS